=== PATIENT | male | born 1945 | race African-American/Black ===

== ENCOUNTER 2017-05-11 11:33 | Inpatient (IN) | payer MEDICAID ==
[~2017-05-11] VITALS: Ht 177.8 cm; Wt 71.2 kg
[2017-05-11 08:00] VITALS: BP 125/73
[2017-05-11 13:11] LABS: BASOPHILS % 0.6 % (0.0-2.0); EOSINOPHILS % 9.2 % (0.0-5.0); HEMATOCRIT. 37.9 % (42.0-52.0); HEMOGLOBIN. 12.8 g/dL (14.0-18.0); LYMPHOCYTES % 40.2 % (20.0-50.0); MEAN CORPUSCULAR HEMOGLOBIN 31.8 pg (28.0-32.0); MEAN CORPUSCULAR VOLUME 94.1 fL (80.0-94.0); MEAN PLATELET VOLUME 8.5 fl (7.4-10.4); MONOCYTES % 12.6 % (2.0-8.0); NEUTROPHILS % 37.4 % (40.0-76.0); PLATELET 204 x1000/uL (130-400); RED BLOOD CELL COUNT 4.02 mill/uL (4.7-6.1); RED CELL DISTRIBUTION WIDTH 13.6 % (11.6-14.6)
[2017-05-11 13:18] LABS: PROTHROMBIN TIME 10.6 sec (9.4-11.6)
[2017-05-11 13:28] LABS: CARBON DIOXIDE 27 mEq/L (21-32); CHLORIDE 108 mEq/L (98-107); ETHANOL BLOOD < 10 mg/dL; TROPONIN I < 0.02 ng/mL (0.00-0.04)
[2017-05-11] MEDS ORDERED: RISP3TAB13 PO (13:29)
[2017-05-11] MEDS ORDERED: RANI150T7 PO (13:29)
[2017-05-11] MEDS ORDERED: PHEN100C12 PO (13:29)
[2017-05-11] MEDS ORDERED: MIRT15TA6 PO (13:29)
[2017-05-11] MEDS ORDERED: LAMO200T PO (13:29)
[2017-05-11] MEDS ORDERED: CLOP75TA33 PO (13:29)
[2017-05-11] MEDS ORDERED: ASPI-1159 PO (13:29)
[2017-05-11] MEDS ORDERED: CARV6.2548 PO (13:29)
[2017-05-11] MEDS ORDERED: HALO10TA13 PO (13:29)
[2017-05-11 13:33] LABS: CLARITY URINE CLEAR (CLEAR); COLOR URINE YELLOW (YELLOW); GLUCOSE URINE NEGATIVE (NEGATIVE); KETONES URINE NEGATIVE (NEGATIVE); LEUKOCYTE ESTERASE URINE NEGATIVE (NEGATIVE); NITRITE URINE NEGATIVE (NEGATIVE); OCCULT BLOOD URINE NEGATIVE (NEGATIVE); PH URINE 6.5 (4.5-8.0); PROTEIN URINE NEGATIVE (NEGATIVE)
[2017-05-11 14:00] LABS: *AMPHETAMINES SCREEN URINE NEGATIVE (NEGATIVE); *BARBITURATES SCREEN URINE NEGATIVE (NEGATIVE); *BENZODIAZEPINES SCREEN URINE NEGATIVE (NEGATIVE); *COCAINE SCREEN URINE NEGATIVE (NEGATIVE); CANNABINOID URINE SCREEN NEGATIVE (NEGATIVE); METHADONE URINE SCREEN NEGATIVE (NEGATIVE); OPIATES URINE SCREEN NEGATIVE (NEGATIVE); PHENCYCLIDINE URINE SCREEN NEGATIVE (NEGATIVE)
[2017-05-11] MEDS ORDERED: ASPIRIN 325MG TABLET PO ONE (14:45)
[2017-05-11] MEDS ORDERED: CEFTRIAXONE 1 G PREMIX 50 ML IV ONE (16:00)
[2017-05-11] MEDS ORDERED: AZITHROMYCIN 500 MG in DEXT 5% WATER 250 ML IV SCH (16:00)
[2017-05-11 17:09] VITALS: BP 125/73
[2017-05-11 20:00] VITALS: BP 121/64
[2017-05-11] MEDS: RISPERIDONE 3 MG TABLET PO SCH (20:58)
[2017-05-11] MEDS ORDERED: MEDICATION NOT ON FORMULARY EA (Haloperidol 10 MG) PO SCH (21:00)
[2017-05-11] MEDS ORDERED: HALOPERIDOL 5MG TABLET PO SCH (21:00)
[2017-05-11] MEDS ORDERED: RISPERIDONE 3 MG PO SCH (21:00)
[2017-05-11] MEDS ORDERED: HALOPERIDOL 2MG TABLET PO SCH (21:00)
[2017-05-11] MEDS: HALOPERIDOL 2MG TABLET PO SCH (21:08)
[2017-05-11] MEDS ORDERED: DEXTROSE 50% WATER 50ML SYRINGE IV PRN (21:45)
[2017-05-12] VITALS: BP 111/69
[2017-05-12 04:00] VITALS: BP 123/69
[2017-05-12 06:10] LABS: BASOPHILS % 0.6 % (0.0-2.0); EOSINOPHILS % 8.2 % (0.0-5.0); HEMATOCRIT. 36.5 % (42.0-52.0); HEMOGLOBIN. 12.4 g/dL (14.0-18.0); LYMPHOCYTES % 55.2 % (20.0-50.0); MEAN CORPUSCULAR HEMOGLOBIN 31.9 pg (28.0-32.0); MEAN PLATELET VOLUME 8.7 fl (7.4-10.4); PLATELET 184 x1000/uL (130-400); RED BLOOD CELL COUNT 3.88 mill/uL (4.7-6.1); RED CELL DISTRIBUTION WIDTH 13.8 % (11.6-14.6)
[2017-05-12] MEDS: BLOOD SUGAR DIAGNOSTIC STRIP TEST SCH ×4 (06:44→21:15)
[2017-05-12 07:34] LABS: CARBON DIOXIDE 23 mEq/L (21-32); CHLORIDE 107 mEq/L (98-107)
[2017-05-12 07:47] LABS: HDL CHOLESTEROL 79 mg/dL (40-59); LDL CHOLESTEROL 54 mg/dL (5-100)
[2017-05-12 08:00] VITALS: BP 102/64
[2017-05-12] MEDS: CARVEDILOL 6.25 MG TABLET PO SCH ×2 (09:00→16:49)
[2017-05-12] MEDS: ASPIRIN 81MG EC TABLET PO SCH (09:55)
[2017-05-12] MEDS: PHENYTOIN SODIUM EXTENDED 100MG CAPSULE PO SCH (09:55)
[2017-05-12] MEDS: CLOPIDOGREL 75MG TABLET PO SCH (09:55)
[2017-05-12] MEDS: ENOXAPARIN 40MG/0.4ML SYR SUBCUT SCH (09:56)
[2017-05-12 12:00] VITALS: BP 118/67
[2017-05-12 16:00] VITALS: BP 125/55
[2017-05-12 20:00] VITALS: BP 122/79
[2017-05-12] MEDS: HALOPERIDOL 2MG TABLET PO SCH (21:15)
[2017-05-12] MEDS: RISPERIDONE 3 MG TABLET PO SCH (21:15)
[2017-05-13] VITALS: BP 112/69
[2017-05-13] MEDS ORDERED: CEFTRIAXONE 1 G PREMIX 50 ML IV SCH (01:00)
[2017-05-13] MEDS ORDERED: AZITHROMYCIN 500 MG in DEXT 5% WATER 250 ML IV SCH (02:00)
[2017-05-13 04:00] VITALS: BP 106/65
[2017-05-13 06:23] LABS: BASOPHILS % 0.6 % (0.0-2.0); EOSINOPHILS % 7.7 % (0.0-5.0); HEMATOCRIT. 37.7 % (42.0-52.0); HEMOGLOBIN. 12.9 g/dL (14.0-18.0); LYMPHOCYTES % 49.7 % (20.0-50.0); MEAN CORPUSCULAR HEMOGLOBIN 31.9 pg (28.0-32.0); MEAN CORPUSCULAR VOLUME 93.2 fL (80.0-94.0); MEAN PLATELET VOLUME 8.5 fl (7.4-10.4); MONOCYTES % 11.2 % (2.0-8.0); NEUTROPHILS % 30.8 % (40.0-76.0); PLATELET 194 x1000/uL (130-400); RED BLOOD CELL COUNT 4.05 mill/uL (4.7-6.1); RED CELL DISTRIBUTION WIDTH 13.4 % (11.6-14.6)
[2017-05-13] MEDS: BLOOD SUGAR DIAGNOSTIC STRIP TEST SCH ×4 (06:29→20:47)
[2017-05-13 07:14] LABS: CARBON DIOXIDE 27 mEq/L (21-32); CHLORIDE 106 mEq/L (98-107)
[2017-05-13 08:00] VITALS: BP 115/64
[2017-05-13] MEDS: CLOPIDOGREL 75MG TABLET PO SCH (09:45)
[2017-05-13] MEDS: PHENYTOIN SODIUM EXTENDED 100MG CAPSULE PO SCH (09:45)
[2017-05-13] MEDS: ASPIRIN 81MG EC TABLET PO SCH (09:45)
[2017-05-13] MEDS: ENOXAPARIN 40MG/0.4ML SYR SUBCUT SCH (09:46)
[2017-05-13] MEDS: CARVEDILOL 6.25 MG TABLET PO SCH ×2 (09:46→16:22)
[2017-05-13 12:00] VITALS: BP 128/80
[2017-05-13 15:28] LABS: FOLIC ACID (FOLATE) SERUM 5.8 ng/mL (>5.38)
[2017-05-13 16:00] VITALS: BP 110/68
[2017-05-13 20:00] VITALS: BP 129/75
[2017-05-13] MEDS: CEFTRIAXONE 1 G PREMIX 50 ML IV SCH (20:43)
[2017-05-13] MEDS: HALOPERIDOL 2MG TABLET PO SCH (20:43)
[2017-05-13] MEDS: RISPERIDONE 3 MG TABLET PO SCH (20:43)
[2017-05-13] MEDS: AZITHROMYCIN 500 MG in DEXT 5% WATER 250 ML IV SCH (21:04)
[2017-05-14] VITALS (7 sets, daily range): BP systolic 100–128; BP diastolic 53–78
[2017-05-14] MEDS: BLOOD SUGAR DIAGNOSTIC STRIP TEST SCH ×4 (06:04→21:42)
[2017-05-14] MEDS: CARVEDILOL 6.25 MG TABLET PO SCH ×2 (09:00→17:00)
[2017-05-14] MEDS: CLOPIDOGREL 75MG TABLET PO SCH (09:38)
[2017-05-14] MEDS: ASPIRIN 81MG EC TABLET PO SCH (09:38)
[2017-05-14] MEDS: PHENYTOIN SODIUM EXTENDED 100MG CAPSULE PO SCH (09:39)
[2017-05-14] MEDS: ENOXAPARIN 40MG/0.4ML SYR SUBCUT SCH (09:39)
[2017-05-14] MEDS: DEXAMETHASONE 4MG/ML 1ML VIAL IV SCH (18:05)
[2017-05-14] MEDS: HALOPERIDOL 2MG TABLET PO SCH (21:31)
[2017-05-14] MEDS: AZITHROMYCIN 500 MG in DEXT 5% WATER 250 ML IV SCH (21:31)
[2017-05-14] MEDS: RISPERIDONE 3 MG TABLET PO SCH (21:31)
[2017-05-14] MEDS: CEFTRIAXONE 1 G PREMIX 50 ML IV SCH (21:31)
[2017-05-15] VITALS: BP 91/59
[2017-05-15] MEDS: DEXAMETHASONE 4MG/ML 1ML VIAL IV SCH ×4 (01:43→17:13)
[2017-05-15 04:00] VITALS: BP 103/68
[2017-05-15] MEDS: BLOOD SUGAR DIAGNOSTIC STRIP TEST SCH ×4 (06:35→20:41)
[2017-05-15 07:20] VITALS: BP 115/67
[2017-05-15] MEDS: ENOXAPARIN 40MG/0.4ML SYR SUBCUT SCH (08:41)
[2017-05-15] MEDS: CARVEDILOL 6.25 MG TABLET PO SCH ×2 (08:46→16:39)
[2017-05-15] MEDS: PHENYTOIN SODIUM EXTENDED 100MG CAPSULE PO SCH (08:47)
[2017-05-15 11:41] VITALS: BP 108/64
[2017-05-15 15:45] VITALS: BP 104/62
[2017-05-15 20:00] VITALS: BP 109/68
[2017-05-15] MEDS: HALOPERIDOL 2MG TABLET PO SCH (20:41)
[2017-05-15] MEDS: RISPERIDONE 3 MG TABLET PO SCH (20:41)
[2017-05-15] MEDS: CEFTRIAXONE 1 G PREMIX 50 ML IV SCH (20:41)
[2017-05-15] MEDS ORDERED: AZITHROMYCIN 500 MG TABLET PO SCH (21:00)
[2017-05-16 00:11] VITALS: BP 104/61
[2017-05-16] MEDS: DEXAMETHASONE 4MG/ML 1ML VIAL IV SCH ×4 (01:45→17:58)
[2017-05-16 04:00] VITALS: BP 93/50
[2017-05-16 07:13] LABS: BASOPHILS % 0.2 % (0.0-2.0); EOSINOPHILS % 0.8 % (0.0-5.0); HEMATOCRIT. 39.6 % (42.0-52.0); HEMOGLOBIN. 13.5 g/dL (14.0-18.0); LYMPHOCYTES % 17.4 % (20.0-50.0); MEAN CORPUSCULAR HEMOGLOBIN 31.8 pg (28.0-32.0); MEAN CORPUSCULAR VOLUME 93.4 fL (80.0-94.0); MEAN PLATELET VOLUME 8.8 fl (7.4-10.4); NEUTROPHILS % 76.6 % (40.0-76.0); PLATELET 225 x1000/uL (130-400); RED BLOOD CELL COUNT 4.24 mill/uL (4.7-6.1); RED CELL DISTRIBUTION WIDTH 13.7 % (11.6-14.6)
[2017-05-16] MEDS: BLOOD SUGAR DIAGNOSTIC STRIP TEST SCH ×3 (07:14→17:48)
[2017-05-16] MEDS: ENOXAPARIN 40MG/0.4ML SYR SUBCUT SCH (07:19)
[2017-05-16 07:23] LABS: CARBON DIOXIDE 23 mEq/L (21-32); CHLORIDE 105 mEq/L (98-107)
[2017-05-16 08:00] VITALS: BP 127/70
[2017-05-16] MEDS: PHENYTOIN SODIUM EXTENDED 100MG CAPSULE PO SCH (08:33)
[2017-05-16] MEDS: CARVEDILOL 6.25 MG TABLET PO SCH ×2 (08:34→16:23)
[2017-05-16 12:00] VITALS: BP 101/53
[2017-05-16 13:24] VITALS: BP 101/56
[2017-05-16 16:00] VITALS: BP 109/65
[2017-05-21] MEDS ORDERED: DEXAMETHASONE 4MG/ML 1ML VIAL IV SCH (18:00)
== END 2017-05-16 19:08 | disposition home or self-care (01) | DRG 40 ==
LOC: ER 11:57 → EDBEDREQ 13:01 → OBSVTOIN 14:36 → 7WST 14:36 → INTOOBSV 14:36 → EDBEDREQSVC 14:43 → EDBEDREQ 14:43 → ENRESERV 15:47 → CANRESERV 15:47 → ENRESERV 15:50 → CANBEDREQ 15:59
PROVIDERS: ADMIT Internal Medicine; ATTEND Internal Medicine
DX: G95.29 Other cord compression (principal); J18.9 Pneumonia, unspecified organism; R65.10 Systemic inflammatory response syndrome (SIRS) of non-infectious origin without acute organ dysfunction; M48.02 Spinal stenosis, cervical region; M48.04 Spinal stenosis, thoracic region; G40.909 Epilepsy, unspecified, not intractable, without status epilepticus; Z79.899 Other long term (current) drug therapy; M47.23 Other spondylosis with radiculopathy, cervicothoracic region; R26.2 Difficulty in walking, not elsewhere classified; M48.06 Spinal stenosis, lumbar region; M25.78 Osteophyte, vertebrae; I10 Essential (primary) hypertension; Z79.82 Long term (current) use of aspirin; Z86.73 Personal history of transient ischemic attack (TIA), and cerebral infarction without residual deficits
CPT/HCPCS: 36415; 70450; 70551; 71010; 72141; 72148; 80048; 80053; 80061; 80185; 80305; 81003; 82607; 82746; 82962; 83036; 83880; 84439; 84443; 84481; 84484; 85025; 85610; 87040; 92523; 93005; 93306; 97110; 97116; 97162; 97165; 99285; G0482; J0456; J0696; J1100; J1630; J1650; J7040; J7060

== ENCOUNTER 2017-05-21 07:17 | Inpatient (IN) | payer MEDICARE, MEDICAID ==
[~2017-05-21] VITALS: Ht 177.8 cm; Wt 83.6 kg
[~2017-05-21 07:17] MED LIST: ASPI-1159 PO; CARV6.2548 PO; CLOP75TA33 PO; HALO10TA13 PO; LAMO200T PO; MIRT15TA6 PO; PHEN100C12 PO; RANI150T7 PO; RISP3TAB13 PO
[2017-05-21] MEDS ORDERED: SODIUM CHLORIDE 0.9% 1,000 ML IV ONE (08:46)
[2017-05-21] MEDS ORDERED: DEXAMETHASONE 10 MG/ML VIAL IV ONE (09:15)
[2017-05-21 09:52] LABS: EOSINOPHILS % 0.8 % (0.0-5.0); HEMATOCRIT. 39.9 % (42.0-52.0); HEMOGLOBIN. 13.5 g/dL (14.0-18.0); LYMPHOCYTES % 28.8 % (20.0-50.0); MEAN CORPUSCULAR HEMOGLOBIN 31.9 pg (28.0-32.0); MEAN CORPUSCULAR VOLUME 93.8 fL (80.0-94.0); MEAN PLATELET VOLUME 8.5 fl (7.4-10.4); MONOCYTES % 7.7 % (2.0-8.0); NEUTROPHILS % 61.7 % (40.0-76.0); PLATELET 231 x1000/uL (130-400); RED BLOOD CELL COUNT 4.25 mill/uL (4.7-6.1)
[2017-05-21 10:02] LABS: PARTIAL THROMBOPLASTIN TIME 23.1 sec (23.4-31.0)
[2017-05-21 10:10] LABS: CARBON DIOXIDE 27 mEq/L (21-32); CHLORIDE 109 mEq/L (98-107); TROPONIN I 0.02 ng/mL (0.00-0.04)
[2017-05-21] MEDS ORDERED: ONDANSETRON HCL 4MG/2ML VIAL IV PRN (10:45)
[2017-05-21] MEDS ORDERED: IPRATROPIUM/ALBUTEROL 0.5-3(2.5)MG/3ML NEB INH PRN (10:45)
[2017-05-21] MEDS ORDERED: HYDROCODONE/ACETAMINOPHEN 10/325MG TABLET PO PRN (10:45)
[2017-05-21] MEDS ORDERED: DIPHENHYDRAMINE 50MG/ML VIAL IV PRN (10:45)
[2017-05-21] MEDS ORDERED: LORAZEPAM 1MG TABLET PO PRN (10:45)
[2017-05-21] MEDS ORDERED: CLONIDINE 0.1MG TABLET PO PRN (10:45)
[2017-05-21 11:40] VITALS: BP 141/83
[2017-05-21 11:40] LABS: CLARITY URINE CLEAR (CLEAR); COLOR URINE YELLOW (YELLOW); GLUCOSE URINE NEGATIVE (NEGATIVE); KETONES URINE NEGATIVE (NEGATIVE); LEUKOCYTE ESTERASE URINE NEGATIVE (NEGATIVE); NITRITE URINE NEGATIVE (NEGATIVE); OCCULT BLOOD URINE NEGATIVE (NEGATIVE); PH URINE 5.5 (4.5-8.0); PROTEIN URINE NEGATIVE (NEGATIVE); SPECIFIC GRAVITY URINE 1.022 (1.005-1.030)
[2017-05-21 11:45] VITALS: BP 141/83
[2017-05-21 12:03] LABS: *AMPHETAMINES SCREEN URINE NEGATIVE (NEGATIVE); *BARBITURATES SCREEN URINE NEGATIVE (NEGATIVE); *BENZODIAZEPINES SCREEN URINE NEGATIVE (NEGATIVE); *COCAINE SCREEN URINE NEGATIVE (NEGATIVE); CANNABINOID URINE SCREEN NEGATIVE (NEGATIVE); METHADONE URINE SCREEN NEGATIVE (NEGATIVE); OPIATES URINE SCREEN NEGATIVE (NEGATIVE); PHENCYCLIDINE URINE SCREEN NEGATIVE (NEGATIVE)
[2017-05-21] MEDS: DEXT 5%/0.45% NACL KCL 20MEQ/L 1,000 ML IV SCH (14:34)
[2017-05-21] MEDS: PHENYTOIN SODIUM EXTENDED 100MG CAPSULE PO SCH (14:34)
[2017-05-21 16:00] VITALS: BP 119/67
[2017-05-21 17:11] LABS: TROPONIN I 0.02 ng/mL (0.00-0.04)
[2017-05-21] MEDS: CARVEDILOL 6.25 MG TABLET PO SCH (17:30)
[2017-05-21] MEDS: DEXAMETHASONE 4MG/ML 1ML VIAL IV SCH (17:30)
[2017-05-21 20:00] VITALS: BP 119/68
[2017-05-21] MEDS: MIRTAZAPINE 15MG TABLET PO SCH (21:17)
[2017-05-21 23:39] LABS: CREATINE KINASE 55 IU/L (39-308); TROPONIN I < 0.02 ng/mL (0.00-0.04)
[2017-05-22] VITALS (33 sets, daily range): BP systolic 77–156; BP diastolic 43–93
[2017-05-22] MEDS: DEXAMETHASONE 4MG/ML 1ML VIAL IV SCH ×4 (01:01→18:18)
[2017-05-22] MEDS: DEXT 5%/0.45% NACL KCL 20MEQ/L 1,000 ML IV SCH (02:31)
[2017-05-22] MEDS: CARVEDILOL 6.25 MG TABLET PO SCH ×2 (06:40→18:00)
[2017-05-22 07:11] LABS: BG BASE EXCESS -1.7 mmol/L (-2.0-2.0); BG CARBOXYHEMOGLOBIN 0.8 % (0.5-1.5); BG DEOXYHEMOGLOBIN 4.8 % (0.0-5.0); BG HCO3 ACT 21.2 mmol/L (22.0-26.0); BG METHEMOGLOBIN 0.1 % (0.0-1.5); BG OXYGEN SATURATION 95.2 % (92.0-98.5); BG OXYHEMOGLOBIN 94.3 % (94.0-97.0); BG PCO2 31.1 mmHg (35.0-45.0); BG PH 7.452 (7.350-7.450); BG PO2 73.8 mmHg (75.0-100.0); BG SAMPLE SITE RIGHT RADIAL; BG TOTAL HEMOGLOBIN 14.1 g/dL (12.0-18.0); BG VENT MODE ROOM AIR
[2017-05-22 07:40] LABS: BASOPHILS % 0.5 % (0.0-2.0); EOSINOPHILS % 0.3 % (0.0-5.0); HEMATOCRIT. 38.4 % (42.0-52.0); HEMOGLOBIN. 13.1 g/dL (14.0-18.0); LYMPHOCYTES % 17.4 % (20.0-50.0); MEAN CORPUSCULAR HEMOGLOBIN 31.6 pg (28.0-32.0); MEAN CORPUSCULAR VOLUME 92.1 fL (80.0-94.0); MEAN PLATELET VOLUME 8.9 fl (7.4-10.4); MONOCYTES % 4.4 % (2.0-8.0); NEUTROPHILS % 77.4 % (40.0-76.0); PLATELET 220 x1000/uL (130-400); RED BLOOD CELL COUNT 4.17 mill/uL (4.7-6.1); RED CELL DISTRIBUTION WIDTH 13.9 % (11.6-14.6)
[2017-05-22 08:33] LABS: CARBON DIOXIDE 24 mEq/L (21-32); CHLORIDE 106 mEq/L (98-107)
[2017-05-22 08:43] LABS: HDL CHOLESTEROL 95 mg/dL (40-59); LDL CHOLESTEROL 70 mg/dL (5-100)
[2017-05-22] MEDS: PHENYTOIN SODIUM EXTENDED 100MG CAPSULE PO SCH (09:24)
[2017-05-22] MEDS ORDERED: GELATIN SPONGE,ABSORBABLE SZ 100 ONE (13:16)
[2017-05-22] MEDS ORDERED: LIDOCAINE HCL 1%/EPI 1:200,000 30 ML VIAL ONE (13:16)
[2017-05-22] MEDS ORDERED: BACITRACIN 50,000 UNITS/VIAL ONE (13:17)
[2017-05-22] MEDS ORDERED: THROMBIN (BOVINE) 5000 UNITS/VIAL TOP ONE (13:17)
[2017-05-22] MEDS ORDERED: NORMAL SALINE 0.9% 10 ML SYR ONE (13:17)
[2017-05-22] MEDS ORDERED: MIDAZOLAM HCL 2 MG/2 ML VIAL ONE (13:22)
[2017-05-22] MEDS ORDERED: FENTANYL CITRATE/PF 50MCG/ML 2ML VIAL ONE (13:22)
[2017-05-22] MEDS ORDERED: SUCCINYLCHOLINE CHLORIDE 200MG/10ML VIAL IV ONE ×2 (13:32→15:49)
[2017-05-22] MEDS ORDERED: DEXT 5%/0.45% NACL KCL 20MEQ/L 1,000 ML IV SCH (14:00)
[2017-05-22] MEDS ORDERED: MORPHINE SULFATE 2 MG/ML CPJ (NOT FOR IM USE) IV PRN (14:15)
[2017-05-22] MEDS ORDERED: IPRATROPIUM/ALBUTEROL 0.5-3(2.5)MG/3ML NEB INH PRN (14:15)
[2017-05-22] MEDS ORDERED: NICARDIPINE 50 MG in SODIUM CHLORIDE 0.9% 230 ML IV PRN (14:15)
[2017-05-22] MEDS ORDERED: HYDROCODONE/ACETAMINOPHEN 10/325MG TABLET PO PRN (14:15)
[2017-05-22] MEDS ORDERED: DIPHENHYDRAMINE 50MG/ML VIAL IV PRN (14:15)
[2017-05-22] MEDS ORDERED: ONDANSETRON HCL 4MG/2ML VIAL IV PRN ×2 (14:15→15:30)
[2017-05-22] MEDS ORDERED: HYDROMORPHONE HCL/PF 2MG/ML (OR) ONE (14:54)
[2017-05-22] MEDS ORDERED: PROPOFOL 200MG/20ML VIAL IV ONE (14:55)
[2017-05-22] MEDS ORDERED: EPHEDRINE SULFATE 50MG/ML VIAL ONE (15:06)
[2017-05-22] MEDS ORDERED: LABETALOL HCL 20MG/4ML CARPUJECT IV PRN (15:30)
[2017-05-22] MEDS ORDERED: HYDROMORPHONE HCL/PF 2MG/ML CPJ IV PRN (15:30)
[2017-05-22] MEDS ORDERED: MEPERIDINE HCL/PF 25MG/ML CPJ IV PRN (15:30)
[2017-05-22] MEDS ORDERED: NEOSTIGMINE METHYLSULFATE 1MG/ML 10 ML VIAL ONE (15:47)
[2017-05-22] MEDS: DEXT 5%/LACTATED RINGERS 1,000 ML IV SCH (16:20)
[2017-05-22] MEDS ORDERED: DIPHENHYDRAMINE INJ IV PRN (16:30)
[2017-05-22] MEDS ORDERED: HYDROMORPHONE PCA 10MG/50ML IV PRN (16:30)
[2017-05-22] MEDS ORDERED: NALOXONE INJ IV PRN (16:30)
[2017-05-22] MEDS ORDERED: NICARDIPINE 100 MG in SODIUM CHLORIDE 0.9% 100 ML IV PRN (16:30)
[2017-05-22] MEDS ORDERED: ONDANSETRON INJ IV PRN (16:30)
[2017-05-22] MEDS ORDERED: SODIUM CHLORIDE 0.9% 500 ML IV NR (18:00)
[2017-05-22] MEDS ORDERED: NOREPINEPHRINE 8 MG in DEXT 5% WATER 492 ML IV PRN (18:00)
[2017-05-22] MEDS: CEFAZOLIN 1000MG PREMIX 50 ML IV SCH (21:53)
[2017-05-22] MEDS: MIRTAZAPINE 15MG TABLET PO SCH (21:55)
[2017-05-22] MEDS ORDERED: CEFAZOLIN SODIUM 1000MG/VIAL IV SCH (22:00)
[2017-05-23] VITALS (75 sets, daily range): BP systolic 57–161; BP diastolic 36–85
[2017-05-23] MEDS: DEXAMETHASONE 4MG/ML 1ML VIAL IV SCH ×4 (00:38→17:06)
[2017-05-23] MEDS: CEFAZOLIN 1000MG PREMIX 50 ML IV SCH ×3 (05:04→22:52)
[2017-05-23] MEDS: CARVEDILOL 6.25 MG TABLET PO SCH ×2 (05:09→17:08)
[2017-05-23] MEDS: DEXT 5%/LACTATED RINGERS 1,000 ML IV SCH (07:30)
[2017-05-23] MEDS: PHENYTOIN SODIUM 100MG/2ML VIAL IV SCH (08:54)
[2017-05-23] MEDS: MIRTAZAPINE 15MG TABLET PO SCH (22:01)
[2017-05-24] VITALS (85 sets, daily range): BP systolic 108–159; BP diastolic 60–84
[2017-05-24] MEDS: DEXAMETHASONE 4MG/ML 1ML VIAL IV SCH ×5 (00:36→23:35)
[2017-05-24] MEDS: DEXT 5%/LACTATED RINGERS 1,000 ML IV SCH ×3 (00:42→20:01)
[2017-05-24] MEDS: CARVEDILOL 6.25 MG TABLET PO SCH (05:00)
[2017-05-24] MEDS ORDERED: LACTATED RINGERS 1,000 ML IV SCH ×2 (07:45→07:55)
[2017-05-24] MEDS: PHENYTOIN SODIUM 100MG/2ML VIAL IV SCH (10:55)
[2017-05-24 11:23] LABS: CHLORIDE 105 mEq/L (98-107)
[2017-05-24 11:28] LABS: CARBON DIOXIDE 28 mEq/L (21-32)
[2017-05-24 11:58] LABS: BASOPHILS % 0.1 % (0.0-2.0); HEMATOCRIT. 39.1 % (42.0-52.0); HEMOGLOBIN. 13.2 g/dL (14.0-18.0); LYMPHOCYTES % 14.5 % (20.0-50.0); MEAN CORPUSCULAR HEMOGLOBIN 31.4 pg (28.0-32.0); MEAN CORPUSCULAR VOLUME 93.2 fL (80.0-94.0); MONOCYTES % 12.7 % (2.0-8.0); NEUTROPHILS % 72.7 % (40.0-76.0); PLATELET 192 x1000/uL (130-400); RED CELL DISTRIBUTION WIDTH 13.4 % (11.6-14.6)
[2017-05-24] MEDS ORDERED: LIDOCAINE HCL 1% 20ML VIAL (Pyxis) INJ ONE (13:59)
[2017-05-24] MEDS: MIRTAZAPINE 15MG TABLET PO SCH (20:01)
[2017-05-25] VITALS (50 sets, daily range): BP systolic 93–158; BP diastolic 50–86
[2017-05-25] MEDS ORDERED: NOREPINEPHRINE 8 MG in DEXT 5% WATER 492 ML IV PRN ×2
[2017-05-25] MEDS: DEXT 5%/LACTATED RINGERS 1,000 ML IV SCH ×3 (04:23→23:01)
[2017-05-25] MEDS: DEXAMETHASONE 4MG/ML 1ML VIAL IV SCH ×4 (06:22→23:01)
[2017-05-25] MEDS: PHENYTOIN SODIUM 100MG/2ML VIAL IV SCH (09:10)
[2017-05-25] MEDS ORDERED: MORPHINE SULFATE 4 MG/ML CPJ (NOT FOR IM USE) IV PRN (12:45)
[2017-05-25] MEDS: MORPHINE SULFATE 4 MG/ML CPJ (NOT FOR IM USE) IV PRN ×2 (14:19→20:08)
[2017-05-25] MEDS: HYDROCODONE/ACETAMINOPHEN 5/325MG TABLET PO PRN (17:31)
[2017-05-25] MEDS: MIRTAZAPINE 15MG TABLET PO SCH (20:08)
[2017-05-26] VITALS (45 sets, daily range): BP systolic 95–153; BP diastolic 47–92
[2017-05-26] MEDS: DEXAMETHASONE 4MG/ML 1ML VIAL IV SCH ×3 (05:29→18:13)
[2017-05-26 05:35] LABS: HEMATOCRIT 36.7 % (42.0-52.0); HEMOGLOBIN 12.6 g/dL (14.0-18.0); MEAN CORPUSCULAR HEMOGLOBIN 31.9 pg (28.0-32.0); MEAN CORPUSCULAR VOLUME 93.4 fL (80.0-94.0); PLATELET 152 x1000/uL (130-400); RED BLOOD CELL COUNT 3.93 mill/uL (4.7-6.1); RED CELL DISTRIBUTION WIDTH 13.2 % (11.6-14.6)
[2017-05-26 05:57] LABS: CARBON DIOXIDE 30 mEq/L (21-32); CHLORIDE 108 mEq/L (98-107)
[2017-05-26] MEDS: PHENYTOIN SODIUM 100MG/2ML VIAL IV SCH (08:38)
[2017-05-26] MEDS: DEXT 5%/LACTATED RINGERS 1,000 ML IV SCH ×2 (08:38→17:34)
[2017-05-26] MEDS: MORPHINE SULFATE 4 MG/ML CPJ (NOT FOR IM USE) IV PRN ×4 (09:10→19:42)
[2017-05-26] MEDS: MIRTAZAPINE 15MG TABLET PO SCH (20:51)
[2017-05-27] VITALS (38 sets, daily range): BP systolic 94–158; BP diastolic 42–93
[2017-05-27] MEDS: DEXT 5%/LACTATED RINGERS 1,000 ML IV SCH ×4 (00:42→23:46)
[2017-05-27] MEDS: DEXAMETHASONE 4MG/ML 1ML VIAL IV SCH ×5 (00:42→23:47)
[2017-05-27] MEDS: HYDROCODONE/ACETAMINOPHEN 5/325MG TABLET PO PRN (07:56)
[2017-05-27] MEDS: PHENYTOIN SODIUM 100MG/2ML VIAL IV SCH (08:57)
[2017-05-27] MEDS: MIRTAZAPINE 15MG TABLET PO SCH (20:49)
[2017-05-27] MEDS: MORPHINE SULFATE 4 MG/ML CPJ (NOT FOR IM USE) IV PRN (20:50)
[2017-05-28] VITALS (35 sets, daily range): BP systolic 91–156; BP diastolic 46–90
[2017-05-28] MEDS: DEXAMETHASONE 4MG/ML 1ML VIAL IV SCH ×2 (05:39→12:29)
[2017-05-28] MEDS: DOCUSATE SODIUM 100MG CAPSULE PO SCH (08:03)
[2017-05-28] MEDS: PHENYTOIN SODIUM EXTENDED 100MG CAPSULE PO SCH (08:03)
[2017-05-28] MEDS: HYDROCODONE/ACETAMINOPHEN 5/325MG TABLET PO PRN (08:05)
[2017-05-28] MEDS: LACTULOSE 20G/30ML UDC PO PRN (18:32)
[2017-05-28] MEDS: MIRTAZAPINE 15MG TABLET PO SCH (20:28)
[2017-05-28] MEDS: MORPHINE SULFATE 4 MG/ML CPJ (NOT FOR IM USE) IV PRN (20:42)
[2017-05-29] VITALS (24 sets, daily range): BP systolic 96–130; BP diastolic 56–79
[2017-05-29] MEDS: MORPHINE SULFATE 4 MG/ML CPJ (NOT FOR IM USE) IV PRN ×5 (01:24→20:30)
[2017-05-29 06:05] LABS: BASOPHILS % 0.2 % (0.0-2.0); EOSINOPHILS % 1.9 % (0.0-5.0); HEMATOCRIT. 37.6 % (42.0-52.0); HEMOGLOBIN. 12.8 g/dL (14.0-18.0); LYMPHOCYTES % 29.8 % (20.0-50.0); MEAN CORPUSCULAR HEMOGLOBIN 31.7 pg (28.0-32.0); MEAN CORPUSCULAR VOLUME 93.2 fL (80.0-94.0); MEAN PLATELET VOLUME 8.9 fl (7.4-10.4); MONOCYTES % 7.1 % (2.0-8.0); PLATELET 160 x1000/uL (130-400); RED BLOOD CELL COUNT 4.04 mill/uL (4.7-6.1); RED CELL DISTRIBUTION WIDTH 13.5 % (11.6-14.6)
[2017-05-29 07:44] LABS: CARBON DIOXIDE 27 mEq/L (21-32); CHLORIDE 105 mEq/L (98-107)
[2017-05-29] MEDS: DOCUSATE SODIUM 100MG CAPSULE PO SCH (08:12)
[2017-05-29] MEDS: DEXAMETHASONE 4MG/ML 1ML VIAL IV SCH (08:12)
[2017-05-29] MEDS: PHENYTOIN SODIUM EXTENDED 100MG CAPSULE PO SCH (08:12)
[2017-05-29] MEDS: HYDROCODONE/ACETAMINOPHEN 10/325MG TABLET PO PRN (08:12)
[2017-05-29] MEDS: SODIUM CHLORIDE 0.9% 1,000 ML IV SCH (14:28)
[2017-05-29] MEDS: MIDODRINE HCL 5MG TABLET PO SCH (18:20)
[2017-05-29] MEDS: MIRTAZAPINE 30MG TABLET PO SCH (20:22)
[2017-05-30] VITALS (20 sets, daily range): BP systolic 94–124; BP diastolic 50–75
[2017-05-30] MEDS: SODIUM CHLORIDE 0.9% 1,000 ML IV SCH ×2 (00:15→12:41)
[2017-05-30] MEDS: MORPHINE SULFATE 4 MG/ML CPJ (NOT FOR IM USE) IV PRN ×5 (04:56→20:57)
[2017-05-30 06:36] LABS: CARBON DIOXIDE 27 mEq/L (21-32); CHLORIDE 106 mEq/L (98-107)
[2017-05-30] MEDS: DEXAMETHASONE 4MG/ML 1ML VIAL IV SCH (08:07)
[2017-05-30] MEDS: DOCUSATE SODIUM 100MG CAPSULE PO SCH ×2 (08:07→16:13)
[2017-05-30] MEDS: PHENYTOIN SODIUM EXTENDED 100MG CAPSULE PO SCH (08:07)
[2017-05-30] MEDS: MIDODRINE HCL 5MG TABLET PO SCH ×3 (08:08→16:13)
[2017-05-30] MEDS: HYDROCODONE/ACETAMINOPHEN 10/325MG TABLET PO PRN ×2 (09:19→18:39)
[2017-05-30] MEDS: LACTULOSE 20G/30ML UDC PO PRN (11:26)
[2017-05-30] MEDS: POLYETHYLENE GLYCOL 3350 (17GM) 1 DOSE PACK PO SCH (20:58)
[2017-05-30] MEDS: MIRTAZAPINE 30MG TABLET PO SCH (20:58)
[2017-05-31] VITALS: BP 131/72
[2017-05-31 04:00] VITALS: BP 123/64
[2017-05-31] MEDS: MORPHINE SULFATE 4 MG/ML CPJ (NOT FOR IM USE) IV PRN ×4 (05:55→22:11)
[2017-05-31] MEDS: SODIUM CHLORIDE 0.9% 1,000 ML IV SCH ×4 (05:56→16:15)
[2017-05-31 07:05] LABS: BASOPHILS % 0.3 % (0.0-2.0); EOSINOPHILS % 3.5 % (0.0-5.0); HEMATOCRIT. 39.1 % (42.0-52.0); HEMOGLOBIN. 13.4 g/dL (14.0-18.0); LYMPHOCYTES % 35.1 % (20.0-50.0); MEAN CORPUSCULAR VOLUME 93.5 fL (80.0-94.0); MEAN PLATELET VOLUME 8.6 fl (7.4-10.4); MONOCYTES % 7.9 % (2.0-8.0); NEUTROPHILS % 53.2 % (40.0-76.0); PLATELET 142 x1000/uL (130-400); RED BLOOD CELL COUNT 4.18 mill/uL (4.7-6.1); RED CELL DISTRIBUTION WIDTH 13.5 % (11.6-14.6)
[2017-05-31 07:57] LABS: CHLORIDE 106 mEq/L (98-107)
[2017-05-31 08:00] VITALS: BP 120/70
[2017-05-31] MEDS ORDERED: NA PHOS,M-B/NA PHOS,DI-BA ENEMA 118ML PR SCH (08:15)
[2017-05-31 08:41] LABS: CARBON DIOXIDE 23 mEq/L (21-32)
[2017-05-31] MEDS: PHENYTOIN SODIUM EXTENDED 100MG CAPSULE PO SCH (09:11)
[2017-05-31] MEDS: DEXAMETHASONE 4MG/ML 1ML VIAL IV SCH (09:12)
[2017-05-31] MEDS: MIDODRINE HCL 5MG TABLET PO SCH ×3 (09:12→18:15)
[2017-05-31] MEDS: DOCUSATE SODIUM 100MG CAPSULE PO SCH ×2 (09:12→18:15)
[2017-05-31] MEDS: HYDROCODONE/ACETAMINOPHEN 5/325MG TABLET PO PRN ×2 (11:15→20:06)
[2017-05-31 12:00] VITALS: BP 95/55
[2017-05-31 16:00] VITALS: BP 118/68
[2017-05-31] MEDS: HYDROCODONE/ACETAMINOPHEN 10/325MG TABLET PO PRN (16:03)
[2017-05-31 20:00] VITALS: BP 157/100
[2017-05-31] MEDS: POLYETHYLENE GLYCOL 3350 (17GM) 1 DOSE PACK PO SCH (21:34)
[2017-05-31] MEDS: MIRTAZAPINE 30MG TABLET PO SCH (21:34)
[2017-06-01] VITALS (12 sets, daily range): BP systolic 95–142; BP diastolic 50–83
[2017-06-01] MEDS: SODIUM CHLORIDE 0.9% 1,000 ML IV SCH ×3 (02:15→18:56)
[2017-06-01] MEDS ORDERED: BISACODYL 10MG SUPP PR NR (08:56)
[2017-06-01] MEDS: BISACODYL 10MG SUPP PR SCH (09:00)
[2017-06-01] MEDS: PHENYTOIN SODIUM EXTENDED 100MG CAPSULE PO SCH (09:26)
[2017-06-01] MEDS: DEXAMETHASONE 4MG/ML 1ML VIAL IV SCH (09:26)
[2017-06-01] MEDS: DOCUSATE SODIUM 100MG CAPSULE PO SCH ×2 (09:26→17:02)
[2017-06-01] MEDS: MIDODRINE HCL 5MG TABLET PO SCH ×3 (09:27→17:02)
[2017-06-01] MEDS: LACTULOSE 20G/30ML UDC PO SCH ×4 (09:28→20:42)
[2017-06-01] MEDS: HYDROCODONE/ACETAMINOPHEN 10/325MG TABLET PO PRN (10:21)
[2017-06-01] MEDS ORDERED: SODIUM CHLORIDE 0.9% 1,000 ML IV SCH (11:45)
[2017-06-01] MEDS: GABAPENTIN 100MG CAPSULE PO SCH ×2 (14:13→20:42)
[2017-06-01] MEDS: FLUDROCORTISONE ACETATE 0.1MG TABLET PO SCH (17:02)
[2017-06-01] MEDS: ACETAMINOPHEN 325MG TABLET PO PRN (18:56)
[2017-06-01] MEDS: MORPHINE SULFATE 4 MG/ML CPJ (NOT FOR IM USE) IV PRN (20:22)
[2017-06-01] MEDS: MIRTAZAPINE 30MG TABLET PO SCH (20:42)
[2017-06-01] MEDS: POLYETHYLENE GLYCOL 3350 (17GM) 1 DOSE PACK PO SCH (20:43)
[2017-06-02] VITALS (10 sets, daily range): BP systolic 106–139; BP diastolic 66–84
[2017-06-02 06:26] LABS: BASOPHILS % 0.6 % (0.0-2.0); EOSINOPHILS % 3.9 % (0.0-5.0); HEMATOCRIT. 38.4 % (42.0-52.0); HEMOGLOBIN. 13.3 g/dL (14.0-18.0); LYMPHOCYTES % 33.8 % (20.0-50.0); MEAN CORPUSCULAR VOLUME 92.5 fL (80.0-94.0); MEAN PLATELET VOLUME 8.8 fl (7.4-10.4); MONOCYTES % 6.2 % (2.0-8.0); NEUTROPHILS % 55.5 % (40.0-76.0); PLATELET 149 x1000/uL (130-400); RED BLOOD CELL COUNT 4.15 mill/uL (4.7-6.1); RED CELL DISTRIBUTION WIDTH 13.5 % (11.6-14.6)
[2017-06-02] MEDS: GABAPENTIN 100MG CAPSULE PO SCH ×3 (06:41→20:38)
[2017-06-02 07:10] LABS: CARBON DIOXIDE 26 mEq/L (21-32); CHLORIDE 107 mEq/L (98-107)
[2017-06-02] MEDS: DOCUSATE SODIUM 100MG CAPSULE PO SCH ×2 (08:58→17:34)
[2017-06-02] MEDS: DEXAMETHASONE 4MG/ML 1ML VIAL IV SCH (08:58)
[2017-06-02] MEDS: FLUDROCORTISONE ACETATE 0.1MG TABLET PO SCH (08:59)
[2017-06-02] MEDS: MIDODRINE HCL 5MG TABLET PO SCH ×3 (08:59→17:34)
[2017-06-02] MEDS: PHENYTOIN SODIUM EXTENDED 100MG CAPSULE PO SCH (08:59)
[2017-06-02] MEDS: ACETAMINOPHEN 325MG TABLET PO PRN ×2 (08:59→17:34)
[2017-06-02] MEDS: BISACODYL 10MG SUPP PR SCH (09:00)
[2017-06-02] MEDS: SODIUM CHLORIDE 0.9% 1,000 ML IV SCH (15:25)
[2017-06-02] MEDS: MIRTAZAPINE 30MG TABLET PO SCH (20:38)
[2017-06-02] MEDS: POLYETHYLENE GLYCOL 3350 (17GM) 1 DOSE PACK PO SCH (20:38)
[2017-06-02] MEDS: MORPHINE SULFATE 4 MG/ML CPJ (NOT FOR IM USE) IV PRN (20:49)
[2017-06-03] VITALS: BP 103/60
[2017-06-03] MEDS: SODIUM CHLORIDE 0.9% 1,000 ML IV SCH ×2 (01:14→17:44)
[2017-06-03 04:00] VITALS: BP 100/52
[2017-06-03] MEDS: GABAPENTIN 100MG CAPSULE PO SCH ×3 (05:16→21:16)
[2017-06-03 07:19] LABS: CARBON DIOXIDE 22 mEq/L (21-32); CHLORIDE 112 mEq/L (98-107)
[2017-06-03 08:00] VITALS: BP 103/60
[2017-06-03] MEDS: DEXAMETHASONE 4MG/ML 1ML VIAL IV SCH (08:46)
[2017-06-03] MEDS: MIDODRINE HCL 5MG TABLET PO SCH ×3 (08:47→17:43)
[2017-06-03] MEDS: PHENYTOIN SODIUM EXTENDED 100MG CAPSULE PO SCH (08:47)
[2017-06-03] MEDS: FLUDROCORTISONE ACETATE 0.1MG TABLET PO SCH (08:47)
[2017-06-03] MEDS: DOCUSATE SODIUM 100MG CAPSULE PO SCH ×2 (08:47→17:43)
[2017-06-03] MEDS: BISACODYL 10MG SUPP PR SCH ×2 (08:48→08:59)
[2017-06-03] MEDS: HYDROCODONE/ACETAMINOPHEN 10/325MG TABLET PO PRN ×3 (08:50→23:32)
[2017-06-03 12:00] VITALS: BP 123/70
[2017-06-03 16:00] VITALS: BP 100/59
[2017-06-03 20:00] VITALS: BP 100/63
[2017-06-03] MEDS: POLYETHYLENE GLYCOL 3350 (17GM) 1 DOSE PACK PO SCH (21:15)
[2017-06-03] MEDS: MIRTAZAPINE 30MG TABLET PO SCH (21:15)
[2017-06-04] VITALS: BP 122/71
[2017-06-04] MEDS: SODIUM CHLORIDE 0.9% 1,000 ML IV SCH ×2 (03:34→12:40)
[2017-06-04 04:00] VITALS: BP 107/66
[2017-06-04] MEDS: GABAPENTIN 100MG CAPSULE PO SCH ×3 (06:23→21:50)
[2017-06-04 08:00] VITALS: BP 117/69
[2017-06-04] MEDS: PHENYTOIN SODIUM EXTENDED 100MG CAPSULE PO SCH (08:53)
[2017-06-04] MEDS: FLUDROCORTISONE ACETATE 0.1MG TABLET PO SCH (08:53)
[2017-06-04] MEDS: HYDROCODONE/ACETAMINOPHEN 5/325MG TABLET PO PRN (08:54)
[2017-06-04] MEDS: BISACODYL 10MG SUPP PR SCH (08:54)
[2017-06-04] MEDS: DEXAMETHASONE 4MG/ML 1ML VIAL IV SCH (08:54)
[2017-06-04] MEDS: DOCUSATE SODIUM 100MG CAPSULE PO SCH ×2 (08:54→17:01)
[2017-06-04] MEDS: MIDODRINE HCL 5MG TABLET PO SCH ×3 (08:54→17:03)
[2017-06-04 12:03] VITALS: BP 114/68
[2017-06-04] MEDS: MORPHINE SULFATE 4 MG/ML CPJ (NOT FOR IM USE) IV PRN (13:23)
[2017-06-04 16:00] VITALS: BP 118/64
[2017-06-04] MEDS: HYDROCODONE/ACETAMINOPHEN 10/325MG TABLET PO PRN (17:02)
[2017-06-04 20:00] VITALS: BP 118/64
[2017-06-04] MEDS: MIRTAZAPINE 30MG TABLET PO SCH (21:50)
[2017-06-04] MEDS: POLYETHYLENE GLYCOL 3350 (17GM) 1 DOSE PACK PO SCH (21:50)
[2017-06-05] VITALS: BP 136/86
[2017-06-05] MEDS: SODIUM CHLORIDE 0.9% 1,000 ML IV SCH ×3 (03:29→17:56)
[2017-06-05 04:00] VITALS: BP 107/58
[2017-06-05] MEDS: GABAPENTIN 100MG CAPSULE PO SCH ×3 (05:30→22:01)
[2017-06-05 06:25] LABS: BASOPHILS % 0.7 % (0.0-2.0); EOSINOPHILS % 3.6 % (0.0-5.0); HEMATOCRIT. 36.3 % (42.0-52.0); HEMOGLOBIN. 12.4 g/dL (14.0-18.0); LYMPHOCYTES % 36.5 % (20.0-50.0); MEAN CORPUSCULAR HEMOGLOBIN 31.9 pg (28.0-32.0); MEAN PLATELET VOLUME 8.8 fl (7.4-10.4); MONOCYTES % 6.6 % (2.0-8.0); NEUTROPHILS % 52.6 % (40.0-76.0); PLATELET 176 x1000/uL (130-400); RED CELL DISTRIBUTION WIDTH 13.5 % (11.6-14.6)
[2017-06-05 07:14] LABS: CARBON DIOXIDE 26 mEq/L (21-32); CHLORIDE 111 mEq/L (98-107)
[2017-06-05 08:00] VITALS: BP 132/69
[2017-06-05] MEDS: BISACODYL 10MG SUPP PR SCH (09:00)
[2017-06-05] MEDS: FLUDROCORTISONE ACETATE 0.1MG TABLET PO SCH (09:30)
[2017-06-05] MEDS: DOCUSATE SODIUM 100MG CAPSULE PO SCH ×2 (09:30→17:56)
[2017-06-05] MEDS: MIDODRINE HCL 5MG TABLET PO SCH ×3 (09:38→17:55)
[2017-06-05] MEDS: DEXAMETHASONE 4MG/ML 1ML VIAL IV SCH (09:38)
[2017-06-05] MEDS: PHENYTOIN SODIUM EXTENDED 100MG CAPSULE PO SCH (09:48)
[2017-06-05 12:08] VITALS: BP 128/73
[2017-06-05] MEDS: HYDROCODONE/ACETAMINOPHEN 5/325MG TABLET PO PRN ×3 (13:51→22:02)
[2017-06-05 16:26] VITALS: BP 116/69
[2017-06-05 20:00] VITALS: BP 120/76
[2017-06-05] MEDS: MIRTAZAPINE 30MG TABLET PO SCH (22:01)
[2017-06-05] MEDS: POLYETHYLENE GLYCOL 3350 (17GM) 1 DOSE PACK PO SCH (22:01)
[2017-06-06] VITALS: BP 129/69
[2017-06-06 04:00] VITALS: BP 129/66
[2017-06-06] MEDS: SODIUM CHLORIDE 0.9% 1,000 ML IV SCH ×2 (04:16→16:30)
[2017-06-06] MEDS: HYDROCODONE/ACETAMINOPHEN 5/325MG TABLET PO PRN ×5 (04:45→22:07)
[2017-06-06] MEDS: GABAPENTIN 100MG CAPSULE PO SCH (05:04)
[2017-06-06 08:00] VITALS: BP 136/78
[2017-06-06 08:16] LABS: CARBON DIOXIDE 26 mEq/L (21-32); CHLORIDE 111 mEq/L (98-107)
[2017-06-06] MEDS: FLUDROCORTISONE ACETATE 0.1MG TABLET PO SCH (09:03)
[2017-06-06] MEDS: PHENYTOIN SODIUM EXTENDED 100MG CAPSULE PO SCH (09:03)
[2017-06-06] MEDS: DEXAMETHASONE 4MG/ML 1ML VIAL IV SCH (09:03)
[2017-06-06] MEDS: DOCUSATE SODIUM 100MG CAPSULE PO SCH ×2 (09:03→16:33)
[2017-06-06] MEDS: BISACODYL 10MG SUPP PR SCH (09:03)
[2017-06-06] MEDS: MIDODRINE HCL 5MG TABLET PO SCH ×3 (09:05→16:33)
[2017-06-06 11:45] VITALS: BP 113/67
[2017-06-06] MEDS: GABAPENTIN 300MG CAPSULE PO SCH ×2 (13:33→22:03)
[2017-06-06 15:58] VITALS: BP 109/60
[2017-06-06 20:00] VITALS: BP 98/59
[2017-06-06] MEDS: MIRTAZAPINE 15MG TABLET PO SCH (22:08)
[2017-06-06] MEDS: POLYETHYLENE GLYCOL 3350 (17GM) 1 DOSE PACK PO SCH (22:08)
[2017-06-07] VITALS: BP 124/59
[2017-06-07 04:00] VITALS: BP 130/68
[2017-06-07] MEDS: GABAPENTIN 300MG CAPSULE PO SCH ×3 (05:36→21:33)
[2017-06-07] MEDS: SODIUM CHLORIDE 0.9% 1,000 ML IV SCH ×2 (05:36→15:45)
[2017-06-07 08:00] VITALS: BP 114/75
[2017-06-07] MEDS: OXYCODONE HCL 5MG TABLET PO SCH ×3 (09:00→18:12)
[2017-06-07] MEDS: BISACODYL 10MG SUPP PR SCH (09:40)
[2017-06-07] MEDS: PHENYTOIN SODIUM EXTENDED 100MG CAPSULE PO SCH (09:45)
[2017-06-07] MEDS: FLUDROCORTISONE ACETATE 0.1MG TABLET PO SCH (09:45)
[2017-06-07] MEDS: MIDODRINE HCL 5MG TABLET PO SCH ×3 (09:46→18:11)
[2017-06-07] MEDS: DEXAMETHASONE 4MG/ML 1ML VIAL IV SCH (09:46)
[2017-06-07] MEDS: DOCUSATE SODIUM 100MG CAPSULE PO SCH ×2 (10:00→18:11)
[2017-06-07] MEDS: HYDROCODONE/ACETAMINOPHEN 5/325MG TABLET PO PRN ×2 (10:00→21:32)
[2017-06-07 11:51] VITALS: BP 121/78
[2017-06-07 16:08] VITALS: BP 108/75
[2017-06-07 20:00] VITALS: BP 130/77
[2017-06-07] MEDS: POLYETHYLENE GLYCOL 3350 (17GM) 1 DOSE PACK PO SCH (21:32)
[2017-06-07] MEDS: MIRTAZAPINE 15MG TABLET PO SCH (21:33)
[2017-06-08] VITALS: BP 155/85
[2017-06-08] MEDS: SODIUM CHLORIDE 0.9% 1,000 ML IV SCH ×2 (01:29→12:35)
[2017-06-08 05:34] LABS: BASOPHILS % 0.4 % (0.0-2.0); EOSINOPHILS % 3.8 % (0.0-5.0); HEMATOCRIT. 37.7 % (42.0-52.0); LYMPHOCYTES % 34.5 % (20.0-50.0); MEAN CORPUSCULAR HEMOGLOBIN 31.8 pg (28.0-32.0); MEAN CORPUSCULAR VOLUME 92.5 fL (80.0-94.0); MEAN PLATELET VOLUME 8.5 fl (7.4-10.4); MONOCYTES % 6.5 % (2.0-8.0); NEUTROPHILS % 54.8 % (40.0-76.0); PLATELET 174 x1000/uL (130-400); RED BLOOD CELL COUNT 4.07 mill/uL (4.7-6.1); RED CELL DISTRIBUTION WIDTH 13.7 % (11.6-14.6)
[2017-06-08 06:00] VITALS: BP 121/73
[2017-06-08] MEDS: GABAPENTIN 300MG CAPSULE PO SCH ×3 (06:41→21:53)
[2017-06-08 07:03] LABS: CARBON DIOXIDE 26 mEq/L (21-32); CHLORIDE 110 mEq/L (98-107)
[2017-06-08 08:36] VITALS: BP 136/82
[2017-06-08] MEDS: ASPIRIN 81MG EC TABLET PO SCH (08:48)
[2017-06-08] MEDS: MIDODRINE HCL 5MG TABLET PO SCH ×3 (08:48→17:23)
[2017-06-08] MEDS: DOCUSATE SODIUM 100MG CAPSULE PO SCH ×2 (08:49→17:23)
[2017-06-08] MEDS: PHENYTOIN SODIUM EXTENDED 100MG CAPSULE PO SCH (08:49)
[2017-06-08] MEDS: OXYCODONE HCL 5MG TABLET PO SCH ×3 (08:49→17:23)
[2017-06-08] MEDS: CLOPIDOGREL 75MG TABLET PO SCH (08:49)
[2017-06-08] MEDS: FLUDROCORTISONE ACETATE 0.1MG TABLET PO SCH (08:50)
[2017-06-08] MEDS ORDERED: DEXAMETHASONE 4MG/ML 1ML VIAL PO SCH (09:00)
[2017-06-08] MEDS: BISACODYL 10MG SUPP PR SCH (09:00)
[2017-06-08 12:00] VITALS: BP 99/56
[2017-06-08] MEDS: DEXAMETHASONE 2MG TABLET PO SCH (12:36)
[2017-06-08 16:00] VITALS: BP 114/61
[2017-06-08 20:00] VITALS: BP 104/62
[2017-06-08] MEDS: POLYETHYLENE GLYCOL 3350 (17GM) 1 DOSE PACK PO SCH (21:00)
[2017-06-08] MEDS: MIRTAZAPINE 15MG TABLET PO SCH (21:55)
[2017-06-09] VITALS (9 sets, daily range): BP systolic 99–140; BP diastolic 55–113
[2017-06-09] MEDS: SODIUM CHLORIDE 0.9% 1,000 ML IV SCH ×2 (01:13→23:55)
[2017-06-09] MEDS: GABAPENTIN 300MG CAPSULE PO SCH ×3 (06:14→21:28)
[2017-06-09] MEDS: DOCUSATE SODIUM 100MG CAPSULE PO SCH ×2 (08:47→16:59)
[2017-06-09] MEDS: MIDODRINE HCL 5MG TABLET PO SCH ×3 (08:47→16:58)
[2017-06-09] MEDS: CLOPIDOGREL 75MG TABLET PO SCH (08:47)
[2017-06-09] MEDS: PHENYTOIN SODIUM EXTENDED 100MG CAPSULE PO SCH (08:47)
[2017-06-09] MEDS: ASPIRIN 81MG EC TABLET PO SCH (08:47)
[2017-06-09] MEDS: FLUDROCORTISONE ACETATE 0.1MG TABLET PO SCH (08:47)
[2017-06-09] MEDS: DEXAMETHASONE 2MG TABLET PO SCH (08:48)
[2017-06-09] MEDS: OXYCODONE HCL 5MG TABLET PO SCH ×3 (08:51→16:58)
[2017-06-09] MEDS: BISACODYL 10MG SUPP PR SCH (09:00)
[2017-06-09] MEDS: MIRTAZAPINE 15MG TABLET PO SCH (21:26)
[2017-06-09] MEDS: POLYETHYLENE GLYCOL 3350 (17GM) 1 DOSE PACK PO SCH (21:27)
[2017-06-10] VITALS: BP 126/72
[2017-06-10 04:00] VITALS: BP 97/57
[2017-06-10] MEDS: GABAPENTIN 300MG CAPSULE PO SCH ×3 (06:09→20:58)
[2017-06-10 08:00] VITALS: BP 110/65
[2017-06-10] MEDS: ASPIRIN 81MG EC TABLET PO SCH ×2 (09:08→09:11)
[2017-06-10] MEDS: MIDODRINE HCL 5MG TABLET PO SCH ×3 (09:08→16:49)
[2017-06-10] MEDS: CLOPIDOGREL 75MG TABLET PO SCH ×2 (09:08→09:11)
[2017-06-10] MEDS: OXYCODONE HCL 5MG TABLET PO SCH ×3 (09:08→16:50)
[2017-06-10] MEDS: PHENYTOIN SODIUM EXTENDED 100MG CAPSULE PO SCH (09:09)
[2017-06-10] MEDS: FLUDROCORTISONE ACETATE 0.1MG TABLET PO SCH (09:09)
[2017-06-10] MEDS: DOCUSATE SODIUM 100MG CAPSULE PO SCH ×2 (09:09→16:51)
[2017-06-10] MEDS: SODIUM CHLORIDE 0.9% 1,000 ML IV SCH ×2 (09:17→18:06)
[2017-06-10] MEDS: BISACODYL 10MG SUPP PR SCH (09:17)
[2017-06-10] MEDS: DEXAMETHASONE 2MG TABLET PO SCH (09:18)
[2017-06-10] MEDS ORDERED: BISACODYL 10MG SUPP PR PRN (11:15)
[2017-06-10 12:00] VITALS: BP 109/66
[2017-06-10] MEDS: LACTULOSE 20G/30ML UDC PO SCH ×3 (12:33→20:58)
[2017-06-10 16:00] VITALS: BP 113/61
[2017-06-10 19:31] VITALS: BP 98/51
[2017-06-10] MEDS: MIRTAZAPINE 15MG TABLET PO SCH (20:58)
[2017-06-10] MEDS: POLYETHYLENE GLYCOL 3350 (17GM) 1 DOSE PACK PO SCH (20:58)
[2017-06-11] VITALS (7 sets, daily range): BP systolic 110–139; BP diastolic 58–78
[2017-06-11] MEDS: SODIUM CHLORIDE 0.9% 1,000 ML IV SCH ×2 (04:21→14:18)
[2017-06-11] MEDS: GABAPENTIN 300MG CAPSULE PO SCH ×3 (05:30→20:36)
[2017-06-11] MEDS: CLOPIDOGREL 75MG TABLET PO SCH (08:36)
[2017-06-11] MEDS: ASPIRIN 81MG EC TABLET PO SCH (08:36)
[2017-06-11] MEDS: DOCUSATE SODIUM 100MG CAPSULE PO SCH ×2 (08:36→20:39)
[2017-06-11] MEDS: PHENYTOIN SODIUM EXTENDED 100MG CAPSULE PO SCH (08:37)
[2017-06-11] MEDS: OXYCODONE HCL 5MG TABLET PO SCH ×3 (08:37→20:38)
[2017-06-11] MEDS: DEXAMETHASONE 2MG TABLET PO SCH (08:37)
[2017-06-11] MEDS: MIDODRINE HCL 5MG TABLET PO SCH ×3 (08:39→20:37)
[2017-06-11] MEDS: BISACODYL 10MG SUPP PR SCH (09:58)
[2017-06-11] MEDS: FLUDROCORTISONE ACETATE 0.1MG TABLET PO SCH (09:58)
[2017-06-11] MEDS: MIRTAZAPINE 15MG TABLET PO SCH (20:38)
[2017-06-11] MEDS: POLYETHYLENE GLYCOL 3350 (17GM) 1 DOSE PACK PO SCH (20:39)
[2017-06-12] VITALS (7 sets, daily range): BP systolic 111–142; BP diastolic 62–77
[2017-06-12] MEDS: GABAPENTIN 300MG CAPSULE PO SCH ×3 (06:29→21:31)
[2017-06-12] MEDS: SODIUM CHLORIDE 0.9% 1,000 ML IV SCH ×3 (06:30→21:30)
[2017-06-12 07:27] LABS: BASOPHILS % 0.4 % (0.0-2.0); EOSINOPHILS % 5.1 % (0.0-5.0); HEMATOCRIT. 37.7 % (42.0-52.0); HEMOGLOBIN. 12.8 g/dL (14.0-18.0); LYMPHOCYTES % 33.2 % (20.0-50.0); MEAN CORPUSCULAR HEMOGLOBIN 31.9 pg (28.0-32.0); MEAN CORPUSCULAR VOLUME 93.7 fL (80.0-94.0); MEAN PLATELET VOLUME 8.6 fl (7.4-10.4); MONOCYTES % 6.8 % (2.0-8.0); NEUTROPHILS % 54.5 % (40.0-76.0); PLATELET 201 x1000/uL (130-400); RED BLOOD CELL COUNT 4.02 mill/uL (4.7-6.1); RED CELL DISTRIBUTION WIDTH 13.7 % (11.6-14.6)
[2017-06-12 08:10] LABS: CARBON DIOXIDE 25 mEq/L (21-32); CHLORIDE 108 mEq/L (98-107)
[2017-06-12] MEDS: FLUDROCORTISONE ACETATE 0.1MG TABLET PO SCH (08:49)
[2017-06-12] MEDS: BISACODYL 10MG SUPP PR SCH (08:49)
[2017-06-12] MEDS: CLOPIDOGREL 75MG TABLET PO SCH (08:50)
[2017-06-12] MEDS: DEXAMETHASONE 2MG TABLET PO SCH (08:50)
[2017-06-12] MEDS: OXYCODONE HCL 5MG TABLET PO SCH (08:50)
[2017-06-12] MEDS: PHENYTOIN SODIUM EXTENDED 100MG CAPSULE PO SCH (08:50)
[2017-06-12] MEDS: ASPIRIN 81MG EC TABLET PO SCH (08:50)
[2017-06-12] MEDS: MIDODRINE HCL 5MG TABLET PO SCH ×3 (08:51→17:49)
[2017-06-12] MEDS: DOCUSATE SODIUM 100MG CAPSULE PO SCH ×2 (08:51→17:49)
[2017-06-12 17:52] LABS: CLARITY URINE CLEAR (CLEAR); COLOR URINE YELLOW (YELLOW); GLUCOSE URINE NEGATIVE (NEGATIVE); KETONES URINE NEGATIVE (NEGATIVE); LEUKOCYTE ESTERASE URINE 2+ (NEGATIVE); NITRITE URINE NEGATIVE (NEGATIVE); OCCULT BLOOD URINE NEGATIVE (NEGATIVE); PROTEIN URINE NEGATIVE (NEGATIVE); SPECIFIC GRAVITY URINE 1.012 (1.005-1.030)
[2017-06-12] MEDS: MIRTAZAPINE 15MG TABLET PO SCH (21:31)
[2017-06-12] MEDS: POLYETHYLENE GLYCOL 3350 (17GM) 1 DOSE PACK PO SCH (21:31)
[2017-06-12] MEDS: HYDROCODONE/ACETAMINOPHEN 5/325MG TABLET PO PRN (21:38)
[2017-06-12 21:57] LABS: CARBON DIOXIDE 24 mEq/L (21-32); CHLORIDE 109 mEq/L (98-107)
[2017-06-13] VITALS: BP_SYST 105; BP_SYST 142; BP_DIAS 53; BP_DIAS 79
[2017-06-13 04:00] VITALS: BP 108/70
[2017-06-13] MEDS: GABAPENTIN 300MG CAPSULE PO SCH ×3 (07:05→21:28)
[2017-06-13] MEDS: SODIUM CHLORIDE 0.9% 1,000 ML IV SCH ×2 (07:10→17:02)
[2017-06-13 08:00] VITALS: BP 118/70
[2017-06-13] MEDS: PHENYTOIN SODIUM EXTENDED 100MG CAPSULE PO SCH (09:01)
[2017-06-13] MEDS: BISACODYL 10MG SUPP PR SCH (09:02)
[2017-06-13] MEDS: FLUDROCORTISONE ACETATE 0.1MG TABLET PO SCH (09:02)
[2017-06-13] MEDS: ASPIRIN 81MG EC TABLET PO SCH (09:02)
[2017-06-13] MEDS: DEXAMETHASONE 2MG TABLET PO SCH (09:02)
[2017-06-13] MEDS: CLOPIDOGREL 75MG TABLET PO SCH (09:02)
[2017-06-13] MEDS: MIDODRINE HCL 5MG TABLET PO SCH ×3 (09:02→17:02)
[2017-06-13] MEDS: DOCUSATE SODIUM 100MG CAPSULE PO SCH ×2 (09:02→17:02)
[2017-06-13] MEDS: NITROFURANTOIN 100MG M/M CAPSULE PO SCH ×2 (09:05→21:28)
[2017-06-13 12:00] VITALS: BP 115/62
[2017-06-13] MEDS: HYDROCODONE/ACETAMINOPHEN 5/325MG TABLET PO PRN ×2 (14:50→21:30)
[2017-06-13 16:00] VITALS: BP 112/64
[2017-06-13 20:00] VITALS: BP 153/87
[2017-06-13] MEDS: MIRTAZAPINE 15MG TABLET PO SCH (21:28)
[2017-06-13] MEDS: POLYETHYLENE GLYCOL 3350 (17GM) 1 DOSE PACK PO SCH (21:29)
[2017-06-14 04:00] VITALS: BP 112/67
[2017-06-14] MEDS: GABAPENTIN 300MG CAPSULE PO SCH ×3 (05:18→21:14)
[2017-06-14] MEDS: HYDROCODONE/ACETAMINOPHEN 5/325MG TABLET PO PRN ×4 (05:19→20:47)
[2017-06-14 06:49] LABS: BASOPHILS % 0.3 % (0.0-2.0); EOSINOPHILS % 4.2 % (0.0-5.0); HEMATOCRIT. 35.8 % (42.0-52.0); HEMOGLOBIN. 12.5 g/dL (14.0-18.0); LYMPHOCYTES % 36.3 % (20.0-50.0); MEAN CORPUSCULAR HEMOGLOBIN 31.9 pg (28.0-32.0); MEAN CORPUSCULAR VOLUME 91.6 fL (80.0-94.0); MEAN PLATELET VOLUME 8.6 fl (7.4-10.4); MONOCYTES % 8.5 % (2.0-8.0); NEUTROPHILS % 50.7 % (40.0-76.0); PLATELET 217 x1000/uL (130-400); RED BLOOD CELL COUNT 3.91 mill/uL (4.7-6.1); RED CELL DISTRIBUTION WIDTH 13.9 % (11.6-14.6)
[2017-06-14 07:56] LABS: CARBON DIOXIDE 28 mEq/L (21-32); CHLORIDE 108 mEq/L (98-107)
[2017-06-14 08:00] VITALS: BP 125/50
[2017-06-14] MEDS: NITROFURANTOIN 100MG M/M CAPSULE PO SCH ×2 (09:49→20:46)
[2017-06-14] MEDS: PHENYTOIN SODIUM EXTENDED 100MG CAPSULE PO SCH (09:49)
[2017-06-14] MEDS: MIDODRINE HCL 5MG TABLET PO SCH ×3 (09:49→17:46)
[2017-06-14] MEDS: DEXAMETHASONE 2MG TABLET PO SCH (09:50)
[2017-06-14] MEDS: ASPIRIN 81MG EC TABLET PO SCH (09:51)
[2017-06-14] MEDS: BISACODYL 10MG SUPP PR SCH (09:51)
[2017-06-14] MEDS: FLUDROCORTISONE ACETATE 0.1MG TABLET PO SCH (09:51)
[2017-06-14] MEDS: CLOPIDOGREL 75MG TABLET PO SCH (09:51)
[2017-06-14] MEDS: DOCUSATE SODIUM 100MG CAPSULE PO SCH ×2 (09:51→17:46)
[2017-06-14 12:00] VITALS: BP 110/54
[2017-06-14 16:00] VITALS: BP 112/64
[2017-06-14 20:00] VITALS: BP 148/80
[2017-06-14] MEDS: POLYETHYLENE GLYCOL 3350 (17GM) 1 DOSE PACK PO SCH (20:46)
[2017-06-14] MEDS: MIRTAZAPINE 15MG TABLET PO SCH (20:46)
[2017-06-15] VITALS: BP 132/72
[2017-06-15 04:00] VITALS: BP 131/77
[2017-06-15] MEDS: SODIUM CHLORIDE 0.9% 1,000 ML IV SCH (05:46)
[2017-06-15] MEDS: GABAPENTIN 300MG CAPSULE PO SCH ×3 (05:46→22:29)
[2017-06-15] MEDS: HYDROCODONE/ACETAMINOPHEN 5/325MG TABLET PO PRN ×5 (05:47→22:29)
[2017-06-15 08:00] VITALS: BP 116/59
[2017-06-15] MEDS: BISACODYL 10MG SUPP PR SCH (08:39)
[2017-06-15] MEDS: DOCUSATE SODIUM 100MG CAPSULE PO SCH ×2 (08:39→17:37)
[2017-06-15] MEDS: NITROFURANTOIN 100MG M/M CAPSULE PO SCH ×2 (08:40→22:28)
[2017-06-15] MEDS: DEXAMETHASONE 2MG TABLET PO SCH (08:40)
[2017-06-15] MEDS: ASPIRIN 81MG EC TABLET PO SCH (08:40)
[2017-06-15] MEDS: PHENYTOIN SODIUM EXTENDED 100MG CAPSULE PO SCH (08:40)
[2017-06-15] MEDS: FLUDROCORTISONE ACETATE 0.1MG TABLET PO SCH (08:40)
[2017-06-15] MEDS: CLOPIDOGREL 75MG TABLET PO SCH (08:43)
[2017-06-15] MEDS: MIDODRINE HCL 5MG TABLET PO SCH ×3 (08:43→17:38)
[2017-06-15 12:00] VITALS: BP 105/57
[2017-06-15 16:00] VITALS: BP 142/79
[2017-06-15 20:00] VITALS: BP 131/69
[2017-06-15] MEDS: POLYETHYLENE GLYCOL 3350 (17GM) 1 DOSE PACK PO SCH ×2 (21:00→22:29)
[2017-06-15] MEDS: MIRTAZAPINE 15MG TABLET PO SCH (22:28)
[2017-06-16] VITALS: BP 141/78
[2017-06-16] MEDS: SODIUM CHLORIDE 0.9% 1,000 ML IV SCH ×2 (01:09→12:43)
[2017-06-16 04:00] VITALS: BP 121/75
[2017-06-16] MEDS: GABAPENTIN 300MG CAPSULE PO SCH ×3 (06:09→21:04)
[2017-06-16] MEDS: HYDROCODONE/ACETAMINOPHEN 5/325MG TABLET PO PRN ×4 (06:09→22:47)
[2017-06-16 08:00] VITALS: BP 123/72
[2017-06-16] MEDS: ASPIRIN 81MG EC TABLET PO SCH (08:17)
[2017-06-16] MEDS: PHENYTOIN SODIUM EXTENDED 100MG CAPSULE PO SCH (08:17)
[2017-06-16] MEDS: DEXAMETHASONE 2MG TABLET PO SCH (08:17)
[2017-06-16] MEDS: MIDODRINE HCL 5MG TABLET PO SCH ×3 (08:17→18:19)
[2017-06-16] MEDS: NITROFURANTOIN 100MG M/M CAPSULE PO SCH ×2 (08:17→21:04)
[2017-06-16] MEDS: CLOPIDOGREL 75MG TABLET PO SCH (08:17)
[2017-06-16] MEDS: DOCUSATE SODIUM 100MG CAPSULE PO SCH ×2 (08:17→18:19)
[2017-06-16] MEDS: FLUDROCORTISONE ACETATE 0.1MG TABLET PO SCH (08:18)
[2017-06-16] MEDS: BISACODYL 10MG SUPP PR SCH (08:29)
[2017-06-16 12:00] VITALS: BP 93/51
[2017-06-16 16:00] VITALS: BP 142/73
[2017-06-16 20:00] VITALS: BP 114/67
[2017-06-16] MEDS: MIRTAZAPINE 15MG TABLET PO SCH (21:04)
[2017-06-16] MEDS: POLYETHYLENE GLYCOL 3350 (17GM) 1 DOSE PACK PO SCH (21:04)
[2017-06-17] VITALS: BP 114/70
[2017-06-17 04:00] VITALS: BP 129/75
[2017-06-17] MEDS: GABAPENTIN 300MG CAPSULE PO SCH ×3 (06:19→21:12)
[2017-06-17] MEDS: HYDROCODONE/ACETAMINOPHEN 5/325MG TABLET PO PRN ×3 (06:20→21:14)
[2017-06-17] MEDS: SODIUM CHLORIDE 0.9% 1,000 ML IV SCH ×3 (06:20→21:14)
[2017-06-17 08:00] VITALS: BP 129/78
[2017-06-17] MEDS: PHENYTOIN SODIUM EXTENDED 100MG CAPSULE PO SCH (08:48)
[2017-06-17] MEDS: NITROFURANTOIN 100MG M/M CAPSULE PO SCH ×2 (08:49→21:12)
[2017-06-17] MEDS: DOCUSATE SODIUM 100MG CAPSULE PO SCH ×2 (08:49→18:08)
[2017-06-17] MEDS: FLUDROCORTISONE ACETATE 0.1MG TABLET PO SCH (08:49)
[2017-06-17] MEDS: ASPIRIN 81MG EC TABLET PO SCH (08:49)
[2017-06-17] MEDS: DEXAMETHASONE 2MG TABLET PO SCH (08:49)
[2017-06-17] MEDS: MIDODRINE HCL 5MG TABLET PO SCH ×3 (08:49→18:08)
[2017-06-17] MEDS: CLOPIDOGREL 75MG TABLET PO SCH (08:49)
[2017-06-17] MEDS: BISACODYL 10MG SUPP PR SCH (09:04)
[2017-06-17] MEDS ORDERED: POTASSIUM CHLORIDE 20MEQ TABLET SR PO NR (09:40)
[2017-06-17 12:00] VITALS: BP 106/60
[2017-06-17 16:00] VITALS: BP 137/74
[2017-06-17 20:00] VITALS: BP 151/75
[2017-06-17] MEDS: POLYETHYLENE GLYCOL 3350 (17GM) 1 DOSE PACK PO SCH (21:12)
[2017-06-17] MEDS: MIRTAZAPINE 15MG TABLET PO SCH (21:12)
[2017-06-18] VITALS: BP 136/68
[2017-06-18] MEDS: HYDROCODONE/ACETAMINOPHEN 5/325MG TABLET PO PRN ×3 (01:33→13:44)
[2017-06-18 04:00] VITALS: BP 127/67
[2017-06-18] MEDS: SODIUM CHLORIDE 0.9% 1,000 ML IV SCH ×2 (05:12→16:24)
[2017-06-18] MEDS: GABAPENTIN 300MG CAPSULE PO SCH ×3 (05:12→21:27)
[2017-06-18 05:55] LABS: BASOPHILS % 0.7 % (0.0-2.0); EOSINOPHILS % 4.1 % (0.0-5.0); HEMATOCRIT. 37.2 % (42.0-52.0); HEMOGLOBIN. 12.6 g/dL (14.0-18.0); LYMPHOCYTES % 40.8 % (20.0-50.0); MEAN CORPUSCULAR HEMOGLOBIN 31.4 pg (28.0-32.0); MEAN CORPUSCULAR VOLUME 92.8 fL (80.0-94.0); MEAN PLATELET VOLUME 8.4 fl (7.4-10.4); MONOCYTES % 8.4 % (2.0-8.0); PLATELET 240 x1000/uL (130-400); RED BLOOD CELL COUNT 4.01 mill/uL (4.7-6.1); RED CELL DISTRIBUTION WIDTH 13.9 % (11.6-14.6)
[2017-06-18 06:45] LABS: CARBON DIOXIDE 26 mEq/L (21-32); CHLORIDE 110 mEq/L (98-107)
[2017-06-18 08:00] VITALS: BP 119/81
[2017-06-18] MEDS: BISACODYL 10MG SUPP PR SCH (09:00)
[2017-06-18] MEDS: ASPIRIN 81MG EC TABLET PO SCH (09:39)
[2017-06-18] MEDS: NITROFURANTOIN 100MG M/M CAPSULE PO SCH ×2 (09:39→21:27)
[2017-06-18] MEDS: DEXAMETHASONE 2MG TABLET PO SCH (09:39)
[2017-06-18] MEDS: PHENYTOIN SODIUM EXTENDED 100MG CAPSULE PO SCH (09:39)
[2017-06-18] MEDS: DOCUSATE SODIUM 100MG CAPSULE PO SCH ×2 (09:39→16:20)
[2017-06-18] MEDS: MIDODRINE HCL 5MG TABLET PO SCH ×3 (09:39→16:20)
[2017-06-18] MEDS: FLUDROCORTISONE ACETATE 0.1MG TABLET PO SCH (09:39)
[2017-06-18] MEDS: CLOPIDOGREL 75MG TABLET PO SCH (09:39)
[2017-06-18 12:00] VITALS: BP 116/63
[2017-06-18 16:00] VITALS: BP 143/79
[2017-06-18 20:00] VITALS: BP 113/60
[2017-06-18] MEDS: POLYETHYLENE GLYCOL 3350 (17GM) 1 DOSE PACK PO SCH (21:27)
[2017-06-18] MEDS: MIRTAZAPINE 15MG TABLET PO SCH (21:28)
[2017-06-19] VITALS: BP 94/55
[2017-06-19 04:00] VITALS: BP 132/75
[2017-06-19] MEDS: SODIUM CHLORIDE 0.9% 1,000 ML IV SCH ×2 (05:37→12:56)
[2017-06-19] MEDS: GABAPENTIN 300MG CAPSULE PO SCH ×3 (05:37→21:53)
[2017-06-19 08:00] VITALS: BP 118/74
[2017-06-19] MEDS: BISACODYL 10MG SUPP PR SCH ×2 (09:00→09:57)
[2017-06-19] MEDS: HYDROCODONE/ACETAMINOPHEN 5/325MG TABLET PO PRN ×3 (09:52→22:01)
[2017-06-19] MEDS: FLUDROCORTISONE ACETATE 0.1MG TABLET PO SCH (09:56)
[2017-06-19] MEDS: PHENYTOIN SODIUM EXTENDED 100MG CAPSULE PO SCH (09:56)
[2017-06-19] MEDS: DEXAMETHASONE 2MG TABLET PO SCH (09:56)
[2017-06-19] MEDS: MIDODRINE HCL 5MG TABLET PO SCH ×3 (09:56→16:34)
[2017-06-19] MEDS: CLOPIDOGREL 75MG TABLET PO SCH (09:56)
[2017-06-19] MEDS: ASPIRIN 81MG EC TABLET PO SCH (09:56)
[2017-06-19] MEDS: NITROFURANTOIN 100MG M/M CAPSULE PO SCH ×2 (09:56→21:53)
[2017-06-19] MEDS: DOCUSATE SODIUM 100MG CAPSULE PO SCH ×2 (09:56→16:34)
[2017-06-19 12:00] VITALS: BP 121/59
[2017-06-19 16:00] VITALS: BP 114/52
[2017-06-19 20:00] VITALS: BP 129/72
[2017-06-19] MEDS: MIRTAZAPINE 15MG TABLET PO SCH (21:53)
[2017-06-19] MEDS: POLYETHYLENE GLYCOL 3350 (17GM) 1 DOSE PACK PO SCH (21:54)
[2017-06-20] VITALS: BP 137/72
[2017-06-20] MEDS: SODIUM CHLORIDE 0.9% 1,000 ML IV SCH ×3 (00:57→17:54)
[2017-06-20 04:00] VITALS: BP 133/76
[2017-06-20] MEDS: GABAPENTIN 300MG CAPSULE PO SCH ×3 (05:51→22:34)
[2017-06-20 08:00] VITALS: BP 105/70
[2017-06-20] MEDS: DOCUSATE SODIUM 100MG CAPSULE PO SCH ×2 (09:55→17:55)
[2017-06-20] MEDS: PHENYTOIN SODIUM EXTENDED 100MG CAPSULE PO SCH (09:55)
[2017-06-20] MEDS: ASPIRIN 81MG EC TABLET PO SCH (09:55)
[2017-06-20] MEDS: DEXAMETHASONE 2MG TABLET PO SCH (09:56)
[2017-06-20] MEDS: CLOPIDOGREL 75MG TABLET PO SCH (09:56)
[2017-06-20] MEDS: FLUDROCORTISONE ACETATE 0.1MG TABLET PO SCH (09:56)
[2017-06-20] MEDS: MIDODRINE HCL 5MG TABLET PO SCH ×3 (09:56→17:54)
[2017-06-20] MEDS: BISACODYL 10MG SUPP PR SCH (09:56)
[2017-06-20] MEDS: NITROFURANTOIN 100MG M/M CAPSULE PO SCH (09:56)
[2017-06-20] MEDS: HYDROCODONE/ACETAMINOPHEN 5/325MG TABLET PO PRN ×3 (10:06→20:39)
[2017-06-20 12:00] VITALS: BP 107/57
[2017-06-20 16:00] VITALS: BP 135/68
[2017-06-20 20:00] VITALS: BP 126/68
[2017-06-20] MEDS: POLYETHYLENE GLYCOL 3350 (17GM) 1 DOSE PACK PO SCH (20:36)
[2017-06-20] MEDS: MIRTAZAPINE 15MG TABLET PO SCH (20:37)
[2017-06-21] VITALS: BP 114/55
[2017-06-21 04:00] VITALS: BP 115/64
[2017-06-21] MEDS: SODIUM CHLORIDE 0.9% 1,000 ML IV SCH ×2 (04:36→13:39)
[2017-06-21] MEDS: GABAPENTIN 300MG CAPSULE PO SCH ×3 (04:59→20:57)
[2017-06-21] MEDS: HYDROCODONE/ACETAMINOPHEN 5/325MG TABLET PO PRN ×4 (04:59→23:27)
[2017-06-21 08:00] VITALS: BP 122/72
[2017-06-21] MEDS: DOCUSATE SODIUM 100MG CAPSULE PO SCH ×2 (08:53→17:56)
[2017-06-21] MEDS: ASPIRIN 81MG EC TABLET PO SCH (08:53)
[2017-06-21] MEDS: PHENYTOIN SODIUM EXTENDED 100MG CAPSULE PO SCH (08:53)
[2017-06-21] MEDS: FLUDROCORTISONE ACETATE 0.1MG TABLET PO SCH (08:54)
[2017-06-21] MEDS: CLOPIDOGREL 75MG TABLET PO SCH (08:54)
[2017-06-21] MEDS: MIDODRINE HCL 5MG TABLET PO SCH ×3 (08:54→17:56)
[2017-06-21] MEDS: DEXAMETHASONE 2MG TABLET PO SCH (08:54)
[2017-06-21] MEDS: BISACODYL 10MG SUPP PR SCH (08:54)
[2017-06-21 12:00] VITALS: BP 122/62
[2017-06-21 15:32] VITALS: BP 133/74
[2017-06-21 20:00] VITALS: BP 157/77
[2017-06-21] MEDS: MIRTAZAPINE 15MG TABLET PO SCH (20:55)
[2017-06-21] MEDS: POLYETHYLENE GLYCOL 3350 (17GM) 1 DOSE PACK PO SCH (20:56)
[2017-06-22] VITALS: BP 107/64
[2017-06-22] MEDS: SODIUM CHLORIDE 0.9% 1,000 ML IV SCH ×3 (01:05→22:14)
[2017-06-22 04:00] VITALS: BP 116/73
[2017-06-22] MEDS: GABAPENTIN 300MG CAPSULE PO SCH ×3 (05:17→22:14)
[2017-06-22 08:00] VITALS: BP 123/70
[2017-06-22] MEDS: DOCUSATE SODIUM 100MG CAPSULE PO SCH ×2 (09:07→17:00)
[2017-06-22] MEDS: MIDODRINE HCL 5MG TABLET PO SCH ×3 (09:07→17:56)
[2017-06-22] MEDS: PHENYTOIN SODIUM EXTENDED 100MG CAPSULE PO SCH (09:08)
[2017-06-22] MEDS: BISACODYL 10MG SUPP PR SCH (09:08)
[2017-06-22] MEDS: ASPIRIN 81MG EC TABLET PO SCH (09:08)
[2017-06-22] MEDS: DEXAMETHASONE 2MG TABLET PO SCH (09:09)
[2017-06-22] MEDS: HYDROCODONE/ACETAMINOPHEN 5/325MG TABLET PO PRN ×3 (09:09→19:10)
[2017-06-22] MEDS: FLUDROCORTISONE ACETATE 0.1MG TABLET PO SCH (09:09)
[2017-06-22] MEDS: CLOPIDOGREL 75MG TABLET PO SCH (10:49)
[2017-06-22 16:14] VITALS: BP 131/72
[2017-06-22 20:00] VITALS: BP 109/53
[2017-06-22] MEDS: POLYETHYLENE GLYCOL 3350 (17GM) 1 DOSE PACK PO SCH (21:00)
[2017-06-22] MEDS: MIRTAZAPINE 15MG TABLET PO SCH (22:14)
[2017-06-23] VITALS (7 sets, daily range): BP systolic 111–139; BP diastolic 61–89
[2017-06-23] MEDS: GABAPENTIN 300MG CAPSULE PO SCH ×3 (06:24→21:18)
[2017-06-23] MEDS: SODIUM CHLORIDE 0.9% 1,000 ML IV SCH ×2 (08:21→19:39)
[2017-06-23] MEDS: BISACODYL 10MG SUPP PR SCH (09:00)
[2017-06-23] MEDS: ASPIRIN 81MG EC TABLET PO SCH (09:55)
[2017-06-23] MEDS: PHENYTOIN SODIUM EXTENDED 100MG CAPSULE PO SCH (09:55)
[2017-06-23] MEDS: DEXAMETHASONE 1MG TABLET PO SCH (09:55)
[2017-06-23] MEDS: CLOPIDOGREL 75MG TABLET PO SCH (09:55)
[2017-06-23] MEDS: DOCUSATE SODIUM 100MG CAPSULE PO SCH ×2 (09:55→17:00)
[2017-06-23] MEDS: MIDODRINE HCL 5MG TABLET PO SCH ×3 (09:55→17:47)
[2017-06-23] MEDS: FLUDROCORTISONE ACETATE 0.1MG TABLET PO SCH (09:56)
[2017-06-23] MEDS: HYDROCODONE/ACETAMINOPHEN 5/325MG TABLET PO PRN ×3 (12:03→23:26)
[2017-06-23] MEDS: MIRTAZAPINE 15MG TABLET PO SCH (21:18)
[2017-06-23] MEDS: POLYETHYLENE GLYCOL 3350 (17GM) 1 DOSE PACK PO SCH (21:19)
[2017-06-24 04:00] VITALS: BP 126/69
[2017-06-24] MEDS: GABAPENTIN 300MG CAPSULE PO SCH ×3 (05:26→21:33)
[2017-06-24] MEDS: SODIUM CHLORIDE 0.9% 1,000 ML IV SCH ×2 (05:26→13:29)
[2017-06-24 08:00] VITALS: BP 136/82
[2017-06-24] MEDS: PHENYTOIN SODIUM EXTENDED 100MG CAPSULE PO SCH (09:01)
[2017-06-24] MEDS: CLOPIDOGREL 75MG TABLET PO SCH (09:01)
[2017-06-24] MEDS: DOCUSATE SODIUM 100MG CAPSULE PO SCH ×2 (09:01→17:00)
[2017-06-24] MEDS: BISACODYL 10MG SUPP PR SCH (09:01)
[2017-06-24] MEDS: FLUDROCORTISONE ACETATE 0.1MG TABLET PO SCH (09:01)
[2017-06-24] MEDS: DEXAMETHASONE 1MG TABLET PO SCH (09:01)
[2017-06-24] MEDS: ASPIRIN 81MG EC TABLET PO SCH (09:01)
[2017-06-24] MEDS: MIDODRINE HCL 5MG TABLET PO SCH ×3 (09:10→21:33)
[2017-06-24] MEDS: HYDROCODONE/ACETAMINOPHEN 5/325MG TABLET PO PRN ×3 (09:11→19:45)
[2017-06-24 11:56] VITALS: BP 113/63
[2017-06-24 11:59] VITALS: BP 118/70
[2017-06-24 16:00] VITALS: BP 128/71
[2017-06-24 20:00] VITALS: BP 101/59
[2017-06-24] MEDS: MIRTAZAPINE 15MG TABLET PO SCH (21:33)
[2017-06-24] MEDS: POLYETHYLENE GLYCOL 3350 (17GM) 1 DOSE PACK PO SCH (21:34)
[2017-06-25] VITALS: BP 103/52
[2017-06-25] MEDS: SODIUM CHLORIDE 0.9% 1,000 ML IV SCH ×2 (00:42→10:48)
[2017-06-25 04:00] VITALS: BP 132/72
[2017-06-25] MEDS: GABAPENTIN 300MG CAPSULE PO SCH ×3 (06:33→21:13)
[2017-06-25] MEDS: MIDODRINE HCL 5MG TABLET PO SCH ×2 (06:33→16:32)
[2017-06-25] MEDS: HYDROCODONE/ACETAMINOPHEN 5/325MG TABLET PO PRN ×3 (06:35→16:33)
[2017-06-25 08:00] VITALS: BP 136/81
[2017-06-25] MEDS: BISACODYL 10MG SUPP PR SCH (09:00)
[2017-06-25] MEDS: DEXAMETHASONE 1MG TABLET PO SCH (09:19)
[2017-06-25] MEDS: DOCUSATE SODIUM 100MG CAPSULE PO SCH ×2 (09:19→16:32)
[2017-06-25] MEDS: FLUDROCORTISONE ACETATE 0.1MG TABLET PO SCH (09:19)
[2017-06-25] MEDS: ASPIRIN 81MG EC TABLET PO SCH (09:19)
[2017-06-25] MEDS: PHENYTOIN SODIUM EXTENDED 100MG CAPSULE PO SCH (09:19)
[2017-06-25] MEDS: CLOPIDOGREL 75MG TABLET PO SCH (09:19)
[2017-06-25 09:51] LABS: HEMATOCRIT 38.4 % (42.0-52.0); HEMOGLOBIN 13.1 g/dL (14.0-18.0); MEAN CORPUSCULAR HEMOGLOBIN 31.8 pg (28.0-32.0); MEAN CORPUSCULAR VOLUME 93.2 fL (80.0-94.0); PLATELET 219 x1000/uL (130-400); RED BLOOD CELL COUNT 4.12 mill/uL (4.7-6.1); RED CELL DISTRIBUTION WIDTH 13.9 % (11.6-14.6)
[2017-06-25 10:03] LABS: CARBON DIOXIDE 26 mEq/L (21-32); CHLORIDE 111 mEq/L (98-107)
[2017-06-25 12:00] VITALS: BP 128/71
[2017-06-25 16:00] VITALS: BP 118/69
[2017-06-25 20:00] VITALS: BP 125/56
[2017-06-25] MEDS: POLYETHYLENE GLYCOL 3350 (17GM) 1 DOSE PACK PO SCH (21:13)
[2017-06-25] MEDS: MIRTAZAPINE 15MG TABLET PO SCH (21:13)
[2017-06-26] VITALS: BP 107/65
[2017-06-26 04:00] VITALS: BP 101/58
[2017-06-26] MEDS: MIDODRINE HCL 5MG TABLET PO SCH ×3 (06:46→16:29)
[2017-06-26] MEDS: GABAPENTIN 300MG CAPSULE PO SCH ×3 (06:46→21:01)
[2017-06-26] MEDS: SODIUM CHLORIDE 0.9% 1,000 ML IV SCH (06:52)
[2017-06-26] MEDS: HYDROCODONE/ACETAMINOPHEN 5/325MG TABLET PO PRN ×3 (06:58→21:06)
[2017-06-26 09:30] VITALS: BP 139/76
[2017-06-26] MEDS: CLOPIDOGREL 75MG TABLET PO SCH (09:30)
[2017-06-26] MEDS: BISACODYL 10MG SUPP PR SCH (09:31)
[2017-06-26] MEDS: ASPIRIN 81MG EC TABLET PO SCH (09:31)
[2017-06-26] MEDS: DOCUSATE SODIUM 100MG CAPSULE PO SCH ×2 (09:31→16:28)
[2017-06-26] MEDS: DEXAMETHASONE 1MG TABLET PO SCH (09:31)
[2017-06-26] MEDS: FLUDROCORTISONE ACETATE 0.1MG TABLET PO SCH (09:31)
[2017-06-26 13:19] VITALS: BP 136/75
[2017-06-26 16:00] VITALS: BP 120/70
[2017-06-26 20:00] VITALS: BP 156/84
[2017-06-26] MEDS: POLYETHYLENE GLYCOL 3350 (17GM) 1 DOSE PACK PO SCH (20:58)
[2017-06-26] MEDS: MIRTAZAPINE 15MG TABLET PO SCH (21:01)
[2017-06-27] VITALS: BP 145/85
[2017-06-27 04:00] VITALS: BP 91/45
[2017-06-27] MEDS: GABAPENTIN 300MG CAPSULE PO SCH ×2 (06:50→15:20)
[2017-06-27 08:00] VITALS: BP 100/50
[2017-06-27] MEDS: BISACODYL 10MG SUPP PR SCH ×2 (09:00→09:46)
[2017-06-27] MEDS ORDERED: DEXAMETHASONE 1MG TABLET PO SCH (09:00)
[2017-06-27] MEDS: CLOPIDOGREL 75MG TABLET PO SCH (09:46)
[2017-06-27] MEDS: FLUDROCORTISONE ACETATE 0.1MG TABLET PO SCH (09:46)
[2017-06-27] MEDS: ASPIRIN 81MG EC TABLET PO SCH (09:46)
[2017-06-27] MEDS: DOCUSATE SODIUM 100MG CAPSULE PO SCH ×2 (09:46→17:00)
[2017-06-27] MEDS: HYDROCODONE/ACETAMINOPHEN 5/325MG TABLET PO PRN ×2 (09:59→15:23)
[2017-06-27 12:00] VITALS: BP 112/64
[2017-06-27] MEDS ORDERED: MIDODRINE HCL 5MG TABLET PO SCH (14:00)
[2017-06-27 16:00] VITALS: BP 132/76
[2017-06-27 17:31] VITALS: BP 128/74
== END 2017-06-27 18:56 | DRG 321 ==
LOC: ER 07:57 → 6EST 09:32 → ENRESERV 10:22 → MICUSO 05-22 16:03 → 5EST 05-30 17:50 → 5WST 06-03 11:16
PROVIDERS: ADMIT Internal Medicine; ATTEND Internal Medicine
PROC: 0RG2071 Fusion of 2 or more Cervical Vertebral Joints with Autologous Tissue Substitute, Posterior Approach, Posterior Column, Open Approach (ICD-10-PCS; principal; 2017-05-22 13:30)
PROC: 02HV33Z Insertion of Infusion Device into Superior Vena Cava, Percutaneous Approach (ICD-10-PCS; 2017-05-24)
PROC: B548ZZA Ultrasonography of Superior Vena Cava, Guidance (ICD-10-PCS; 2017-05-24)
DX: M48.02 Spinal stenosis, cervical region (principal); K27.5 Chronic or unspecified peptic ulcer, site unspecified, with perforation; I95.9 Hypotension, unspecified; G95.9 Disease of spinal cord, unspecified; S14.129A Central cord syndrome at unspecified level of cervical spinal cord, initial encounter; D64.9 Anemia, unspecified; G40.909 Epilepsy, unspecified, not intractable, without status epilepticus; R13.10 Dysphagia, unspecified; E86.0 Dehydration; B19.20 Unspecified viral hepatitis C without hepatic coma; D72.829 Elevated white blood cell count, unspecified; F17.210 Nicotine dependence, cigarettes, uncomplicated; F29 Unspecified psychosis not due to a substance or known physiological condition; H40.9 Unspecified glaucoma; I10 Essential (primary) hypertension; I25.10 Atherosclerotic heart disease of native coronary artery without angina pectoris; I25.2 Old myocardial infarction; I83.90 Asymptomatic varicose veins of unspecified lower extremity; K27.9 Peptic ulcer, site unspecified, unspecified as acute or chronic, without hemorrhage or perforation; M10.9 Gout, unspecified; M54.12 Radiculopathy, cervical region; Z79.82 Long term (current) use of aspirin; Z86.73 Personal history of transient ischemic attack (TIA), and cerebral infarction without residual deficits; J98.11 Atelectasis; R25.1 Tremor, unspecified; H54.61 Unqualified visual loss, right eye, normal vision left eye; K59.00 Constipation, unspecified; Z87.11 Personal history of peptic ulcer disease; Z90.01 Acquired absence of eye; Z98.61 Coronary angioplasty status; F11.10 Opioid abuse, uncomplicated; F14.10 Cocaine abuse, uncomplicated; F41.9 Anxiety disorder, unspecified; R01.1 Cardiac murmur, unspecified; Z79.899 Other long term (current) drug therapy
CPT/HCPCS: 36415; 36569; 36600; 71010; 72040; 72141; 76937; 80048; 80053; 80061; 80185; 80305; 81001; 81003; 82375; 82550; 82805; 83690; 83735; 83880; 84443; 84484; 85025; 85027; 85610; 85730; 86850; 86900; 87077; 87086; 87186; 88304; 88311; 92610; 93005; 93970; 96361; 96374; 97110; 97112; 97163; 97166; 97530; 99285; A4216; A6261; C1725; C1893; J0171; J0330; J0690; J1100; J1165; J1170; J2250; J2270; J2704; J2710; J3010; J3490; J7030; J7040; J7050; J7060; J7120; J7121; J7620; J8540; A4315